=== PATIENT | male | born 1940 | race Caucasian/White ===

== ENCOUNTER → 2017-05-06 | Outpatient (CLI) | payer MEDICARE ==
[2017-05-06 11:25] LABS: Basophils % (A) 0 %; CH 34.9; CHCM 34.1; Eosinophils # (A) 0.3 k/uL (0-0.7); Eosinophils % (A) 7 %; HCT 42.9 % (39.0-53.0); HGB 14.5 gm/dL (13.0-17.5); Luc # (Auto) 0.11; Luc % (Auto) 3; Lymphocytes # (A) 1.2 k/uL (1.0-4.8); Lymphocytes % (A) 29 %; MCH 34.7 pg (25.0-35.0); MCHC 33.7 g/dL (31.0-37.0); MCV 102.9 fL (80.0-100.0); Macrocytosis Slight; Mean Platelet Volume 6.8; Monocytes # (A) 0.4 k/uL (0-1.0); Monocytes % (A) 10 %; Neutrophils # (A) 2.2 k/uL (1.3-7.7); Neutrophils % (A) 52 %; RBC 4.17 m/uL (4.30-5.90); RDW 13.1 % (11.5-15.5); WBC 4.1 k/uL (3.8-10.6); WBC (Perox) 4.18
[2017-05-06 12:03] LABS: ALT 39 U/L (21-72); Anion Gap 8 mmol/L; Blood Urea Nitrogen 18 mg/dL (9-20); Carbon Dioxide 25 mmol/L (22-30); Chloride 107 mmol/L (98-107); Cholesterol 121 mg/dL (<200); Glucose 92 mg/dL (74-99); HDL Cholesterol 61 mg/dL (40-60); Non-African American GFR(MDRD) >60 (>60 ml/min/1.73 sqM); Sodium 140 mmol/L (137-145); Triglycerides 69 mg/dL (<150)
== END | disposition home or self-care (01) ==
LOC: LABWHC1 10:12
PROVIDERS: ATTEND Internal Medicine Cardiovascular Disease
DX: I65.23 Occlusion and stenosis of bilateral carotid arteries (principal); E78.5 Hyperlipidemia, unspecified; I34.0 Nonrheumatic mitral (valve) insufficiency; I11.9 Hypertensive heart disease without heart failure; E55.9 Vitamin D deficiency, unspecified; I25.10 Atherosclerotic heart disease of native coronary artery without angina pectoris
CPT/HCPCS: 36415; 80051; 80061; 82306; 82565; 82947; 84443; 84460; 84520; 85025

== ENCOUNTER → 2017-06-01 | Outpatient (CLI) | payer MEDICARE ==
--- NOTE | 2017-06-01 15:47 | US ---
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 EXAM MEASUREMENTS: Abdominal Aorta: Proximal: 1.9 x 1.8 cm Mid: 1.6 x 1.7 cm Distal: 1.6 x 1.5 cm Bifurcation: rt 1.4 x 1.2 cm left 1.2 x 1.2 cm normal caliber aorta IMPRESSION: 1. Normal abdomen ultrasound
== END | disposition home or self-care (01) ==
LOC: RADUSWWP 10:52
PROVIDERS: ATTEND Internal Medicine Cardiovascular Disease
DX: I25.10 Atherosclerotic heart disease of native coronary artery without angina pectoris (principal)
CPT/HCPCS: 93979

== ENCOUNTER → 2018-01-25 | Outpatient (CLI) | payer MEDICARE ==
[2018-01-25 10:37] LABS: Basophils % (A) 1 %; Eosinophils # (A) 0.3 k/uL (0-0.7); Eosinophils % (A) 8 %; HCT 42.1 % (39.0-53.0); HGB 13.9 gm/dL (13.0-17.5); Lymphocytes # (A) 1.2 k/uL (1.0-4.8); Lymphocytes % (A) 30 %; MCH 32.9 pg (25.0-35.0); MCHC 32.9 g/dL (31.0-37.0); MCV 99.8 fL (80.0-100.0); Mean Platelet Volume 7.1; Monocytes # (A) 0.3 k/uL (0-1.0); Monocytes % (A) 9 %; Neutrophils % (A) 51 %; Platelet Count 161 k/uL (150-450); RBC 4.22 m/uL (4.30-5.90); RDW 12.3 % (11.5-15.5)
[2018-01-25 10:46] LABS: ALT 33 U/L (21-72); Anion Gap 8 mmol/L; Blood Urea Nitrogen 14 mg/dL (9-20); Carbon Dioxide 28 mmol/L (22-30); Chloride 106 mmol/L (98-107); Cholesterol 104 mg/dL (<200); Glucose 106 mg/dL (74-99); HDL Cholesterol 57 mg/dL (40-60); LDL Cholesterol,Calculated 40 mg/dL (0-99); Potassium 4.6 mmol/L (3.5-5.1); Sodium 142 mmol/L (137-145); Triglycerides 34 mg/dL (<150)
== END | disposition home or self-care (01) ==
LOC: LABWHC1 10:01
PROVIDERS: ATTEND Internal Medicine Cardiovascular Disease
DX: E78.5 Hyperlipidemia, unspecified (principal); I25.10 Atherosclerotic heart disease of native coronary artery without angina pectoris; I11.9 Hypertensive heart disease without heart failure; I34.0 Nonrheumatic mitral (valve) insufficiency; R06.02 Shortness of breath
CPT/HCPCS: 36415; 80051; 80061; 82565; 82947; 83880; 84443; 84460; 84520; 85025

== ENCOUNTER → 2018-06-14 | Outpatient (CLI) | payer MEDICARE ==
[2018-06-14 11:00] LABS: Basophils % (A) 1 %; Eosinophils # (A) 0.5 k/uL (0-0.7); Eosinophils % (A) 10 %; HCT 44.1 % (39.0-53.0); HGB 14.7 gm/dL (13.0-17.5); Lymphocytes # (A) 1.6 k/uL (1.0-4.8); Lymphocytes % (A) 32 %; MCH 33.4 pg (25.0-35.0); MCHC 33.5 g/dL (31.0-37.0); MCV 99.8 fL (80.0-100.0); Mean Platelet Volume 6.9; Monocytes # (A) 0.5 k/uL (0-1.0); Monocytes % (A) 10 %; Neutrophils # (A) 2.3 k/uL (1.3-7.7); Neutrophils % (A) 46 %; Platelet Count 138 k/uL (150-450); RBC 4.42 m/uL (4.30-5.90); RDW 12.7 % (11.5-15.5); WBC 4.9 k/uL (3.8-10.6)
[2018-06-14 11:04] LABS: Potassium 5.1 mmol/L (3.5-5.1)
[2018-06-14 17:27] LABS: Hemoglobin A1C 5.2 % (4.0-6.0)
== END | disposition home or self-care (01) ==
LOC: LABWHC1 09:26
PROVIDERS: ATTEND Internal Medicine Cardiovascular Disease
DX: E78.5 Hyperlipidemia, unspecified (principal); I11.9 Hypertensive heart disease without heart failure; R06.02 Shortness of breath
CPT/HCPCS: 36415; 80051; 80061; 82306; 82565; 82947; 83036; 83880; 84443; 84460; 84520; 85025

== ENCOUNTER → 2018-10-25 | Outpatient (CLI) | payer MEDICARE ==
[2018-10-25 11:53] LABS: Basophils % (A) 0 %; Eosinophils # (A) 0.3 k/uL (0-0.7); Eosinophils % (A) 8 %; HCT 40.7 % (39.0-53.0); HGB 14.3 gm/dL (13.0-17.5); Lymphocytes # (A) 1.1 k/uL (1.0-4.8); Lymphocytes % (A) 29 %; MCH 35.4 pg (25.0-35.0); Mean Platelet Volume 6.9; Monocytes # (A) 0.3 k/uL (0-1.0); Monocytes % (A) 8 %; Neutrophils % (A) 52 %; Platelet Count 149 k/uL (150-450); RBC 4.03 m/uL (4.30-5.90); RDW 12.6 % (11.5-15.5); WBC 3.9 k/uL (3.8-10.6)
[2018-10-25 15:59] LABS: Anion Gap 3.6 mmol/L (4.00-12.00); Carbon Dioxide 26.4 mmol/L (21.6-31.8); Potassium 4.9 mmol/L (3.5-5.5)
== END | disposition home or self-care (01) ==
LOC: LABWHC1 09:42
PROVIDERS: ATTEND Internal Medicine Cardiovascular Disease
DX: I11.9 Hypertensive heart disease without heart failure (principal); I25.10 Atherosclerotic heart disease of native coronary artery without angina pectoris; E78.5 Hyperlipidemia, unspecified; R06.02 Shortness of breath; R53.82 Chronic fatigue, unspecified
CPT/HCPCS: 36415; 80051; 80061; 82565; 82947; 83880; 84443; 84460; 84520; 85025

== ENCOUNTER → 2019-03-13 | Outpatient (CLI) | payer MEDICARE ==
[2019-03-13 10:44] LABS: Basophils % (A) 0 %; Eosinophils # (A) 0.4 k/uL (0-0.7); Eosinophils % (A) 6 %; HCT 43.6 % (39.0-53.0); HGB 14.6 gm/dL (13.0-17.5); Lymphocytes # (A) 1.3 k/uL (1.0-4.8); Lymphocytes % (A) 21 %; MCH 33.9 pg (25.0-35.0); MCHC 33.5 g/dL (31.0-37.0); MCV 101.2 fL (80.0-100.0); Monocytes # (A) 0.5 k/uL (0-1.0); Monocytes % (A) 9 %; Neutrophils # (A) 3.9 k/uL (1.3-7.7); Neutrophils % (A) 62 %; Platelet Count 162 k/uL (150-450); RBC 4.31 m/uL (4.30-5.90); RDW 12.8 % (11.5-15.5); WBC 6.3 k/uL (3.8-10.6)
[2019-03-13 16:41] LABS: LDL Cholesterol,Calculated 42.6 mg/dL (0.0-131.0); Potassium 4.5 mmol/L (3.5-5.5); VLDL Calculation 10.4 mg/dL (5.00-40.00)
== END ==
LOC: LABWHC1 09:39
PROVIDERS: ATTEND Internal Medicine Cardiovascular Disease
DX: E78.5 Hyperlipidemia, unspecified (principal); I11.9 Hypertensive heart disease without heart failure; I25.10 Atherosclerotic heart disease of native coronary artery without angina pectoris; R06.02 Shortness of breath
CPT/HCPCS: 36415; 80051; 80061; 82565; 82947; 83880; 84443; 84460; 84520; 85025

== ENCOUNTER → 2019-04-19 | Outpatient (CLI) | payer MEDICARE ==
--- NOTE | 2019-04-19 14:34 | XR ---
Lumbosacral spine HISTORY: Back pain 5 views of the lumbar sacral spine There is a rotatory dextroscoliosis seen. There is no evident spondylolysis. Anterior listhesis grade 1 L5-S1. There is loss of disc height at intervertebral levels. Sclerosis present in the posterior e lements of the lumbar spine. Vacuum phenomenon present at intervertebral disc levels. Lumbar vertebra l bodies show preserved height. Postop changes status post laminectomies present at L4 and possibly L 5. Vascular opacification is noted incidentally. Bone mineralization is reduced. IMPRESSION: Degenerative disc disease, scoliosis, osteopenia, facet arthropathy.
--- NOTE | 2019-04-19 14:44 | XR ---
Thoracic spine HISTORY: Back pain 3 views of the thoracic spine There is an underlying scoliosis. Patient is post median sternotomy. Multilevel spondylosis is presen t. Thoracic vertebral bodies show preserved height. Bone mineralization is reduced. Anterior flowing osteophytes within the lower thoracic spine with relative preservation of disc spaces may be indicati ve of diffuse idiopathic skeletal hyperostosis. IMPRESSION: Scoliosis, osteopenia, consider DISH
== END | disposition home or self-care (01) ==
LOC: RADXRMAIN 12:12
PROVIDERS: ATTEND Physician Assistant
DX: M51.37 Other intervertebral disc degeneration, lumbosacral region (principal); M41.87 Other forms of scoliosis, lumbosacral region; M85.88 Other specified disorders of bone density and structure, other site; M46.97 Unspecified inflammatory spondylopathy, lumbosacral region
CPT/HCPCS: 72070; 72110

== ENCOUNTER → 2019-06-29 | Outpatient (CLI) | payer MEDICARE ==
[2019-06-29 09:42] LABS: Basophils % (A) 0 %; Eosinophils # (A) 0.4 k/uL (0-0.7); Eosinophils % (A) 6 %; HCT 46.5 % (39.0-53.0); HGB 15.7 gm/dL (13.0-17.5); Lymphocytes # (A) 1.7 k/uL (1.0-4.8); Lymphocytes % (A) 28 %; MCH 34.2 pg (25.0-35.0); MCHC 33.8 g/dL (31.0-37.0); Mean Platelet Volume 6.5; Monocytes # (A) 0.4 k/uL (0-1.0); Monocytes % (A) 7 %; Neutrophils # (A) 3.4 k/uL (1.3-7.7); Neutrophils % (A) 56 %; Platelet Count 167 k/uL (150-450); RDW 12.6 % (11.5-15.5); WBC 6.1 k/uL (3.8-10.6)
[2019-06-29 18:38] LABS: African American GFR (CKD) 74.7 (60.0-200.0); Anion Gap 7.8 mmol/L (4.00-12.00); Carbon Dioxide 25.2 mmol/L (21.6-31.8); Potassium 4.7 mmol/L (3.5-5.5)
== END | disposition home or self-care (01) ==
LOC: LABWHC1 09:18
PROVIDERS: ATTEND Internal Medicine Cardiovascular Disease
DX: E78.5 Hyperlipidemia, unspecified (principal); I11.9 Hypertensive heart disease without heart failure; I25.10 Atherosclerotic heart disease of native coronary artery without angina pectoris; R06.02 Shortness of breath
CPT/HCPCS: 36415; 80051; 80061; 82565; 82947; 83880; 84443; 84460; 84520; 85025

== ENCOUNTER → 2020-01-22 | Outpatient (CLI) | payer MEDICARE ==
[2020-01-22 17:50] LABS: T4, Free (Free Thyroxine) 1.3 ng/dL (0.80-1.80)
== END | disposition home or self-care (01) ==
LOC: LABWHC1 11:14
PROVIDERS: ATTEND Psychiatry & Neurology Neurology
DX: E55.9 Vitamin D deficiency, unspecified (principal); R41.3 Other amnesia; M62.81 Muscle weakness (generalized); E87.8 Other disorders of electrolyte and fluid balance, not elsewhere classified
CPT/HCPCS: 36415; 82306; 82550; 82607; 84207; 84439; 84443; 86780

== ENCOUNTER 2020-05-07 16:34 | Observation (INO) | payer MEDICARE ==
[2020-05-07] MEDS ORDERED: NITROGLYCERIN SL TABS 0.4 MG TAB SUBLINGUAL PRN (16:49)
--- NOTE | 2020-05-07 16:49 | ED ---
General Adult HPI - General Stated complaint: Chest Pain Time Seen by Provider: 05/07/20 16:40 Source: patient, RN notes reviewed, old records reviewed - History of Present Illness Initial comments: This is a 80-year-old male who presents emergency Department with a past medical history significant for bypass surgery. Patient presented to [facility] earlier today with chest pain that lasted about 15-20 minutes. Patient states the pain eventually subsided. While the patient was in the emergency department he started having more pain again again last month 15-20 minutes and then it eventually subsided. Currently the patient is chest pain-free. Patient describes pain as pressure. Patient denies any radiation of the pain. Patient states she's mild short of breath. Patient denies any diaphoretic episodes. P atient denies nausea vomiting diarrhea. Patient states the pain reminded him of his cardiac pain in the past and that is what concerned him. Patient denies any abdominal pain patient is nausea vomiting diarrhea per patient denies any swelling to legs or calf tenderness. - Related Data Allergies Allergy/AdvReac Type Severity Reaction Status Date / Time acetaminophen [From Vicodin] Allergy Rash/Hives Verified 05/07/20 17:21 bacitracin Allergy Rash/Hives Verified 05/07/20 17:21 hydrocodone [From Vicodin] Allergy Rash/Hives Verified 05/07/20 17:21 sulfadimethoxine Allergy Rash/Hives Verified 05/07/20 17:21 trimethoprim Allergy Rash/Hives Verified 05/07/20 17:21 Review of Systems ROS Statement: Those systems with pertinent positive or pertinent negative responses have been documented in the HPI. ROS Other: All systems not noted in ROS Statement are negative. General Exam - General Exam Comments Initial Comments: GENERAL: Patient is well-developed and well-nourished. Patient is nontoxic and well- hydrated and is in no acute distress. ENT: Neck is soft and supple. No significant lymphadenopathy is noted. Oropharynx is clear. Moist mucous membranes. Neck has full range of motion without eliciting any pain. EYES: The sclera were anicteric and conjunctiva were pink and moist. Extraocular movements were intact and pupils were equal round and reactive to light. Eyelids were unremarkable. PULMONARY: Unlabored respirations. Good breath sounds bilaterally. No audible rales rhonchi or wheezing was noted. CARDIOVASCULAR: There is a regular rate and rhythm without any murmurs gallops or rubs. ABDOMEN: Soft and nontender with normal bowel sounds. SKIN: Skin is clear with no lesions or rashes and otherwise unremarkable. NEUROLOGIC: Patient is alert and oriented x3. Cranial nerves II through XII are grossly intact. Motor and sensory are also intact. Normal speech, volume and content. Symmetrical smile. MUSCULOSKELETAL: Normal extremities with adequate strength and full range of motion. No lower extremity swelling or edema. No calf tenderness. LYMPHATICS: No significant lymphadenopathy is noted PSYCHIATRIC: Normal psychiatric evaluation. Medical Decision Making - Medical Decision Making I will continue the heparin in the emergency department. I spoke with Dr. Lacey he agreed to admit the patient admitted the patient I consult to cardiology. EKG shows sinus bradycardia 50 bpm IA interval 146 dresses 84 Q-T intervals 460 QTC is 419. Patient's EKG shows no ST segment elevation or depression. Gets like it's like Disposition Clinical Impression: Unstable angina Disposition: ADMITTED IP TO THIS HOSP Referrals: Bill Smith MD [Primary Care Provider] - 1-2 days Time of Disposition: 16:49
[2020-05-07] MEDS ORDERED: BACLOFEN 10 MG TAB PO PRN (20:28)
[2020-05-07] MEDS ORDERED: MELATONIN 3 MG TABLET PO PRN (20:29)
[2020-05-07] MEDS ORDERED: ALPRAZolam 0.25 MG TAB PO PRN (20:29)
[2020-05-07] MEDS ORDERED: LACTULOSE 20 GM/30 ML CUP PO PRN (20:29)
[2020-05-07] MEDS ORDERED: MAGNESIUM HYDROXIDE 2,400 MG/10 ML CUP PO PRN (20:29)
[2020-05-07] MEDS ORDERED: ACETAMINOPHEN TAB 325 MG TAB PO PRN (20:29)
[2020-05-07] MEDS ORDERED: CALCIUM CARBONATE 500 MG CHEWABLE PO PRN (20:29)
[2020-05-07] MEDS ORDERED: ONDANSETRON 4 MG/2 ML VIAL IVP PRN (20:29)
[2020-05-07] MEDS ORDERED: MAG HYDROX/AL HYDROX/SIMETH 30 ML CUP PO PRN (20:29)
[2020-05-07] MEDS ORDERED: NALOXONE 0.4 MG/ML 1 ML VIAL IV PRN (20:29)
[2020-05-07] MEDS: NITROGLYCERIN OINT 1 INCH/GM PACKET TOPICAL SCH ×2 (21:10→22:23)
[2020-05-07] MEDS: CARVEDILOL 6.25 MG TAB PO SCH (21:12)
--- NOTE | 2020-05-07 21:26 | P.HPIM ---
History of Present Illness H&P Date: 05/07/20 Chief Complaint: Chest pressure History of presenting complaint: This is a very pleasant [address] Smith. Chronic stable medical conditions include hyperlipidemia, GERD, mild Alzheimer's dementia, cardiomyopathy, hypertension, chronic low back pain, chronic kidney disease, coronary artery disease with history of bypass years ago. Patient not the most detailed historians. Patient initially presented at [facility] where at home and had chest pressure for 30-45 minutes. Laying across the chest. No radiation. and reported some dizziness. He also had an episode previously with dinnertime. Troponin was negative patient was sent down here for further workup. Patient currently chest pain-free. 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 . Does smoke in the past. No significant alcohol history Family history: Reviewed, noncontributory to presentation Physical examination: VITAL SIGNS: 98.2, 50, 18, 100/53, 98% on 2 L GENERAL: BMI 23.8, sitting up, comfortable. EYES: Pupils equal. Conjunctiva normal. HEENT: External appearance of nose and ears normal, oral cavity grossly normal. NECK: JVD not raised; masses not palpable. HEART: First and second heart sounds are normal; no edema. LUNGS: Respiratory rate normal; clear to auscultation. ABDOMEN: Soft, nontender, liver spleen not palpable, no masses palpable. PSYCH: [Patient is able to answer most to simple questions l. NEUROLOGICAL: Cranial nerves grossly intact; no facial asymmetry, power and sensation grossly intact. LYMPHATICS: No lymph nodes palpable in the axilla and neck INVESTIGATIONS, reviewed in the clinical context: Blood work from [facility]: Sodium 136 potassium 4.4 bun 21 creatinine 1 CPK 94 white count 5.6 hemoglobin 13.4 platelets 142 troponin less than 0.012 EKG tracing personally reviewed by me showed sinus rhythm with a heart rate of 50 Assessment: -Possible unstable angina in a patient known coronary artery disease with negative troponin -Coronary artery disease prior history of coronary bypass -Hyperlipidemia -GERD -Cognitive impairment probably tonsils Alzheimer's dementia -Essential hypertension and chronic low back pain from arthritis - Plan: Home medications resumed. Patient is on aspirin cardiology was consulted. Patient will at least need a stress test. We'll make him nothing by mouth after midnight patient currently chest pain-free. Discussed with the patient Past Medical History Past Medical History: Coronary Artery Disease (CAD), Dementia, GERD/Reflux, Hyperlipidemia, Hypertension Additional Past Medical History / Comment(s): chronic back pain,CKD,Thoracic aortic aneurysm,hydrocele,cardiomyopathy, History of Any Multi-Drug Resistant Organisms: None Reported Past Surgical History: Cholecystectomy, Coronary Bypass/CABG, Orthopedic Surgery Past Anesthesia/Blood Transfusion Reactions: No Reported Reaction Past Psychological History: No Psychological Hx Reported Additional Psychological History / Comment(s): dementia Smoking Status: Former smoker Past Alcohol Use History: None Reported Past Drug Use History: None Reported Medications and Allergies Home Medications Medication Instructions Recorded Confirmed Type Ascorbic Acid [Vitamin C] 500 mg PO DAILY 05/07/20 05/07/20 History Aspirin EC [Ecotrin Low Dose] 81 mg PO DAILY 05/07/20 05/07/20 History Baclofen [Lioresal] 10 mg PO BID PRN 05/07/20 05/07/20 History Carvedilol [Coreg] 6.25 mg PO BID 05/07/20 05/07/20 History Donepezil [Aricept] 10 mg PO DAILY 05/07/20 05/07/20 History Ergocalciferol [Vitamin D2 50,000 unit PO WE 05/07/20 05/07/20 History (DRISDOL)] Folic Acid 1,333mcg 1,333 mcg PO DAILY 05/07/20 05/07/20 History Magnesium 250 mg PO DAILY 05/07/20 05/07/20 History Memantine HCl [Memantine HCl ER] 28 mg PO DAILY 05/07/20 05/07/20 History Multivitamins, Thera [Multivitamin 1 tab PO DAILY 05/07/20 05/07/20 History (formulary)] Quinapril HCl [Accupril] 5 mg PO DAILY 05/07/20 05/07/20 History Allergies Allergy/AdvReac Type Severity Reaction Status Date / Time acetaminophen [From Vicodin] Allergy Rash/Hives Verified 05/07/20 17:21 bacitracin Allergy Rash/Hives Verified 05/07/20 17:21 hydrocodone [From Vicodin] Allergy Rash/Hives Verified 05/07/20 17:21 sulfadimethoxine Allergy Rash/Hives Verified 05/07/20 17:21 trimethoprim Allergy Rash/Hives Verified 05/07/20 17:21 Physical Exam Vitals: Vital Signs Temp Pulse Pulse Resp BP BP Pulse Ox 05/07/20 20:15 98.3 F 55 L 15 134/58 99 05/07/20 19:40 98.2 F 50 L 18 100/53 98 05/07/20 18:02 51 L 20 134/65 99 05/07/20 17:44 49 L 16 129/66 99 05/07/20 16:54 98.1 F 51 L 18 129/64 99 Intake and Output 05/07/20 05/07/20 05/07/20 06:59 14:59 22:59 Other: Weight 77.564 kg Thrombosis Risk Factor Assmnt - Choose All That Apply Other Risk Factors: No Other congenital or acquired thrombophilia - If yes, enter type in comment: No
[2020-05-08] MEDS: NITROGLYCERIN OINT 1 INCH/GM PACKET TOPICAL SCH ×2 (05:48→08:29)
[2020-05-08 05:51] LABS: Cholesterol 127 mg/dL (<200); HDL Cholesterol 54 mg/dL (40-60); LDL Cholesterol,Calculated 62 mg/dL (0-99); Triglycerides 55 mg/dL (<150)
[2020-05-08] MEDS: CARVEDILOL 6.25 MG TAB PO SCH (08:28)
[2020-05-08] MEDS ORDERED: LISINOPRIL 5 MG TAB PO SCH (09:00)
[2020-05-08] MEDS ORDERED: MAGNESIUM OXIDE 400 MG TAB PO SCH (09:00)
[2020-05-08] MEDS ORDERED: ASCORBIC ACID 500 MG TAB PO SCH (09:00)
[2020-05-08] MEDS ORDERED: ASPIRIN 81 MG PO SCH (09:00)
[2020-05-08] MEDS ORDERED: MULTIVITAMINS, THERA 1 EACH TAB PO SCH (09:00)
[2020-05-08] MEDS ORDERED: MEMANTINE 10 MG TAB PO SCH (09:00)
[2020-05-08] MEDS ORDERED: DONEPEZIL 10 MG TAB PO SCH (09:00)
[2020-05-08] MEDS ORDERED: ASPIRIN 325 MG TAB PO SCH (09:00)
--- NOTE | 2020-05-08 09:06 | P.CRDCN ---
History of Present Illness History of present illness: HISTORY OF PRESENTING ILLNESS This is a pleasant 80-year-old male past medical history significant for very artery disease status post bypass grafting, hypertension, dyslipidemia, thoracic aortic aneurysm, cardiomyopathy and dementia. This information is all obtained from the medical record as the patient is a poor historian. He states he follows with Dr. Conde for cardiology. We have been asked to see in consultation for chest pain. According to the ER noted he was transferred from [facility] secondary to chest pain. The patient states he does recall feeling like he was going to pass out yesterday and like someone was squeezing his torso. He cannot recall how long this lasted, however the ER note states 15- 20 minutes and it subsided on its own. He then did have abother episode while in the ER that again lasted around 15 minutes. He denies feeling short of breath, palpitations or nausea. But does recall feeling slightly diaphoretic. DIAGNOSTICS EKG reveals sinus bradycardia heart rate 50. Telemetry tracings indicate sinus bradycardia, heart rate mostly in the low 50's. No significant pauses or arrhythmia noted. Laboratory reviewed, cardiac enzymes performed here negative 2, initial troponin and [facility] negative 1, laboratory data from [facility] reveals sodium was 136, potassium 4.4, creatinine 1.0, WBC 5.6, hemoglobin 13.4 and platelets 142. Current cardiac medications include carvedilol 6.25 mg twice a day, Accupril 5 mg daily and aspirin 81 mg daily. REVIEW OF SYSTEMS At the time of my exam: CONSTITUTIONAL: Denies fever or chills. CARDIOVASCULAR: Denies chest pain, shortness of breath, orthopnea, PND or palpitations. RESPIRATORY: Denies cough. GASTROINTESTINAL: Denies abdominal pain, diarrhea, constipation, nausea or vomiting. MUSCULOSKELETAL: Denies myalgias. NEUROLOGIC: Denies numbness, tingling or weakness. ENDOCRINE: Denies fatigue, weight change, polydipsia or polyurina. GENITOURINARY: Denies burning, hematuria or urgency with micturation. HEMATOLOGIC: Denies history of anemia or bleeding. PHYSICAL EXAMINATION Blood pressure 137/70 heart rate 50 afebrile and maintaining oxygen saturation on room air. CONSTITUTIONAL: No apparent distress. HEENT: Head is normocephalic. Pupils are equal, round. Sclerae anicteric. Mucous membranes of the mouth are moist. No JVD. No carotid bruit. CHEST EXAMINATION: Lungs are clear to auscultation. No chest wall tenderness is noted on palpation or with deep breathing. HEART EXAMINATION: Regular rate and rhythm. S1, S2 heard. Soft systolic ejection murmur at the left sternal border, no gallops or rub. ABDOMEN: Soft, nontender. Positive bowel sounds. EXTREMITIES: 2+ peripheral pulses, no lower extremity edema and no calf tenderness. NEUROLOGIC EXAMINATION: Patient is awake, alert and oriented x3. ASSESSMENT Chest pain, an acute coronary event has been ruled out. Coronary artery disease s/p bypass grafting, exact details unavailable to me at this time Hypertension Dementia PLAN An acute coronary event has been ruled out with normal cardiac enzymes and no signs of ischemia on EKG. Recommend maximizing his medical therapy. Decrease coreg to 3.125 mg BID secondary to bradycardia. Increase lisinopril to 10 mg daily for blood pressure since we are decreasing the coreg. Discontinue nitropaste and initiate imdur 30 mg daily. Obtain 2D echocardiogram and doppler study to assess cardiac structure and function. If he remains chest pain free on current regimen he can be discharged home to follow up with his primary household assistant. Thank you kindly for this consultation. Nurse Practitioner note has been reviewed, I agree with a documented findings and plan of care. Patient was seen and examined. Past Medical History Past Medical History: Coronary Artery Disease (CAD), Dementia, GERD/Reflux, Hyperlipidemia, Hypertension Additional Past Medical History / Comment(s): chronic back pain,CKD,Thoracic aortic aneurysm,hydrocele,cardiomyopathy, History of Any Multi-Drug Resistant Organisms: None Reported Past Surgical History: Cholecystectomy, Coronary Bypass/CABG, Orthopedic Surgery Past Anesthesia/Blood Transfusion Reactions: No Reported Reaction Past Psychological History: No Psychological Hx Reported Additional Psychological History / Comment(s): dementia Smoking Status: Former smoker Past Alcohol Use History: None Reported Past Drug Use History: None Reported Medications and Allergies Home Medications Medication Instructions Recorded Confirmed Type Ascorbic Acid [Vitamin C] 500 mg PO DAILY 05/07/20 05/07/20 History Aspirin EC [Ecotrin Low Dose] 81 mg PO DAILY 05/07/20 05/07/20 History Baclofen [Lioresal] 10 mg PO BID PRN 05/07/20 05/07/20 History Carvedilol [Coreg] 6.25 mg PO BID 05/07/20 05/07/20 History Donepezil [Aricept] 10 mg PO DAILY 05/07/20 05/07/20 History Ergocalciferol [Vitamin D2 50,000 unit PO WE 05/07/20 05/07/20 History (DRISDOL)] Folic Acid 1,333mcg 1,333 mcg PO DAILY 05/07/20 05/07/20 History Magnesium 250 mg PO DAILY 05/07/20 05/07/20 History Memantine HCl [Memantine HCl ER] 28 mg PO DAILY 05/07/20 05/07/20 History Multivitamins, Thera [Multivitamin 1 tab PO DAILY 05/07/20 05/07/20 History (formulary)] Quinapril HCl [Accupril] 5 mg PO DAILY 05/07/20 05/07/20 History Allergies Allergy/AdvReac Type Severity Reaction Status Date / Time acetaminophen [From Vicodin] Allergy Rash/Hives Verified 05/07/20 17:21 bacitracin Allergy Rash/Hives Verified 05/07/20 17:21 hydrocodone [From Vicodin] Allergy Rash/Hives Verified 05/07/20 17:21 sulfadimethoxine Allergy Rash/Hives Verified 05/07/20 17:21 trimethoprim Allergy Rash/Hives Verified 05/07/20 17:21 Physical Exam Vitals: Vital Signs Temp Pulse Pulse Resp BP BP Pulse Ox 05/08/20 04:00 98.3 F 50 L 15 137/70 96 05/08/20 03:40 50 L 14 05/07/20 22:35 97.7 F 50 L 14 119/56 96 05/07/20 22:34 55 L 15 05/07/20 20:15 98.3 F 55 L 15 134/58 99 05/07/20 19:40 98.2 F 50 L 18 100/53 98 05/07/20 18:02 51 L 20 134/65 99 05/07/20 17:44 49 L 16 129/66 99 05/07/20 16:54 98.1 F 51 L 18 129/64 99 Intake and Output 05/07/20 05/08/20 05/08/20 22:59 06:59 14:59 Intake Total 720 Balance 720 Intake: Oral 720 Other: # Voids 2 1 Weight 77.564 kg Results Cardiac Enzymes 05/07/20 05/08/20 Range/Units 19:32 01:39 Troponin I <0.012 <0.012 (0.000-0.034) ng/mL Lipids 05/08/20 Range/Units 01:39 Triglycerides 55 (<150) mg/dL Cholesterol 127 (<200) mg/dL HDL Cholesterol 54 (40-60) mg/dL Current Medications Generic Name Dose Route Start Last Admin Trade Name Freq PRN Reason Stop Dose Admin Acetaminophen 650 mg 05/07/20 20:29 Tylenol Tab PO Q6HR PRN Mild Pain or Fever > 100.5 Al Hydroxide/Mg Hydroxide 15 ml 05/07/20 20:29 Maalox PO Q6HR PRN Indigestion Alprazolam 0.25 mg 05/07/20 20:29 Xanax PO Q6HR PRN Anxiety Ascorbic Acid 500 mg 05/08/20 09:00 05/08/20 08:28 Vitamin C PO 500 mg DAILY DIRK Administration Aspirin 81 mg 05/08/20 09:00 05/08/20 08:27 Aspirin PO 81 mg DAILY [facility] Administration Baclofen 10 mg 05/07/20 20:28 Lioresal PO BID PRN Muscle Spasm Calcium Carbonate/Glycine 1,000 mg 05/07/20 20:29 Tums PO Q4HR PRN Dyspepsia Carvedilol 6.25 mg 05/07/20 21:00 05/08/20 08:28 Coreg PO 6.25 mg AC-BID DIRK Administration Donepezil HCl 10 mg 05/08/20 09:00 05/08/20 08:28 Aricept PO 10 mg DAILY [facility] Administration Lactulose 20 gm 05/07/20 20:29 Cephulac PO DAILY PRN Constipation Lisinopril 5 mg 05/08/20 09:00 05/08/20 08:28 Zestril PO 5 mg DAILY [facility] Administration Magnesium Hydroxide 2,400 mg 05/07/20 20:29 Milk Of Magnesia PO DAILY PRN Constipation Magnesium Oxide 400 mg 05/08/20 09:00 05/08/20 08:28 Mag-Ox PO Not Given DAILY [facility] Melatonin 3 mg 05/07/20 20:29 Melatonin PO HS PRN Insomnia Memantine 10 mg 05/08/20 09:00 05/08/20 08:28 Namenda PO 10 mg BID [facility]IRK Administration Multivitamins 1 each 05/08/20 09:00 05/08/20 08:28 Theragran PO 1 each DAILY [facility] Administration Naloxone HCl 0.2 mg 05/07/20 20:29 Narcan IV Q2M PRN Opioid Reversal Nitroglycerin 1 inch 05/07/20 18:00 05/08/20 08:29 Nitro-Bid Oint TOPICAL Not Given Q6HR [facility] Nitroglycerin 0.4 mg 05/07/20 16:49 Nitrostat SUBLINGUAL Q5M PRN Chest Pain Ondansetron HCl 4 mg 05/07/20 20:29 Zofran IVP Q8HR PRN Nausea And Vomiting Intake and Output 05/07/20 05/08/20 05/08/20 22:59 06:59 14:59 Intake Total 720 Balance 720 Intake: Oral 720 Other: # Voids 2 1 Weight 77.564 kg
[2020-05-08] MEDS ORDERED: ISOSORBIDE MONONITRATE ER 30 MG TAB.ER.24H PO SCH (09:15)
[2020-05-08 10:04] VITALS: BP 124/59; PULSE 53; RESP 18; TEMP 97.8
--- NOTE | 2020-05-08 11:45 | ECHOF ---
Referral Reason:cp, near syncope MEASUREMENTS -------- HEIGHT: 180.3 cm WEIGHT: 77.6 kg BP: IVSd: 1.2 cm (0.6 - 1.1) LVIDd: 4.0 cm (3.9 - 5.3) LVPWd: 1.2 cm (0.6 - 1.1) IVSs: 1.7 cm LVIDs: 1.8 cm LVPWs: 1.6 cm LAESV Index (A-L): 23.84 ml/m Ao Diam: 3.0 cm (2.0 - 3.7) AV Cusp: 2.2 cm (1.5 - 2.6) LA Diam: 3.9 cm (2.7 - 3.8) MV EXCURSION: 15.271 mm (> 18.000) MV EF SLOPE: 80 mm/s (70 - 150) EPSS: 1.9 cm MV E Danny: 0.82 m/s MV DecT: 237 ms MV A Danny: 0.55 m/s MV E/A Ratio: 1.49 AR PHT: 381 ms RAP: 5.00 mmHg RVSP: 15.95 mmHg FINDINGS -------- Sinus rhythm. This was a technically adequate study. The left ventricular size is normal. There is mild concentric left ventricular hypertrophy. Overa ll left ventricular systolic function is normal with, an EF between 55 - 60 %. The diastolic fillin g pattern is normal for the age of the patient 9.91. The right ventricle is normal in size. The left atrial size is normal. Normal LA size by volume 22+/-6 ml/m2. The right atrial size is normal. The aortic valve is trileaflet and appears structurally normal. Trace amount of aortic regurgitatio n. The mitral valve is normal. The mitral valve leaflets are mildly thickened. Mild mitral regurgita tion is present. The tricuspid valve appears structurally normal. Trace tricuspid regurgitation present. Right jayashree tricular systolic pressure is normal at < 35 mmHg. There is no pulmonic regurgitation present. The aortic root size is normal. Normal inferior vena cava with normal inspiratory collapse consistent with estimated right atrial pre ssure of 5 mmHg. There is no pericardial effusion. CONCLUSIONS -------- 1. Sinus rhythm. 2. This was a technically adequate study. 3. The left ventricular size is normal. 4. There is mild concentric left ventricular hypertrophy. 5. Overall left ventricular systolic function is normal with, an EF between 55 - 60 %. 6. The diastolic filling pattern is normal for the age of the patient 9.91 7. The right ventricle is normal in size. 8. The left atrial size is normal. 9. Normal LA size by volume 22+/-6 ml/m2. 10. The right atrial size is normal. 11. The aortic valve is trileaflet and appears structurally normal. 12. Trace amount of aortic regurgitation. 13. The mitral valve is normal. 14. The mitral valve leaflets are mildly thickened. 15. Mild mitral regurgitation is present. 16. The tricuspid valve appears structurally normal. 17. Trace tricuspid regurgitation present. 18. Right ventricular systolic pressure is normal at < 35 mmHg. 19. There is no pulmonic regurgitation present. 20. The aortic root size is normal. 21. Normal inferior vena cava with normal inspiratory collapse consistent with estimated right atrial pressure of 5 mmHg. 22. There is no pericardial effusion. ENTRY LEVEL SOFTWARE ENGINEER: Mis Lopez RDCS
--- NOTE | 2020-05-08 21:38 | P.DS ---
Providers Date of admission: 05/07/20 17:20 Expected date of discharge: 05/08/20 Attending physician: David Lacey Consults: 05/07/20 16:50 Consult Physician Urgent Consulting Provider: [facility] Consult Reason/Comments: Unstable angina Do you want consulting provider notified?: Yes Primary care physician: Bill Smith [facility] Course: Chief Complaint: Chest pressure History of presenting complaint: This is a very pleasant [address] Smith. Chronic stable medical conditions include hyperlipidemia, GERD, mild Alzheimer's dementia, cardiomyopathy, hypertension, chronic low back pain, chronic kidney disease, coronary artery disease with history of bypass years ago. Patient not the most detailed historians. Patient initially presented at [facility] where at home and had chest pressure for 30-45 minutes. Laying across the chest. No radiation. and reported some dizziness. He also had an episode previously with dinnertime. Troponin was negative patient was sent down here for further workup. Patient currently chest pain-free. Today doing well. Seen by cardiac surgery. Imdur 30 mg was added. Coreg was cut back to 3.125 twice a day and quinapril increased to 10 mg daily. I called the patient's at home this evening. Informed her of that dosage changes. She wrote it down. Patient otherwise is doing well. No chest pain. No shortness of breath. Consultation: Chito De Santiago from cardiology Physical examination: VITAL SIGNS: 97.8, 53, 18, 124/59, 98% room air GENERAL: Sitting at the edge of the bed, comfortable EYES: Pupils equal. Conjunctiva normal. HEENT: External appearance of nose and ears normal, oral cavity grossly normal. NECK: JVD not raised; masses not palpable. HEART: First and second heart sounds are normal; no edema. LUNGS: Respiratory rate normal; clear to auscultation. ABDOMEN: Soft, nontender, liver spleen not palpable, no masses palpable. PSYCH: [Patient is able to answer most to simple questions l. INVESTIGATIONS, reviewed in the clinical context: LDL 62 COVID 19 PCR-not detected Blood work from [facility]: Sodium 136 potassium 4.4 bun 21 creatinine 1 CPK 94 white count 5.6 hemoglobin 13.4 platelets 142 troponin less than 0.012 EKG tracing personally reviewed by me showed sinus rhythm with a heart rate of 50 Assessment: -Possible unstable angina in a patient known coronary artery disease with negative troponin. Medications adjusted. -Coronary artery disease prior history of coronary bypass -Hyperlipidemia -GERD -Cognitive impairment probably tonsils Alzheimer's dementia -Essential hypertension and chronic low back pain from arthritis - Disposition: Home Patient Condition at Discharge: Stable Plan - Discharge Summary New Discharge Prescriptions: New Isosorbide Mononitrate ER [Imdur] 30 mg PO DAILY #30 tab.er.24h Nitroglycerin Sl Tabs [Nitrostat] 0.4 mg SUBLINGUAL Q5M PRN #25 tab PRN Reason: Chest Pain Continue Baclofen [Lioresal] 10 mg PO BID PRN PRN Reason: Muscle Spasm Folic Acid 1,333mcg 1,333 mcg PO DAILY Aspirin EC [Ecotrin Low Dose] 81 mg PO DAILY Multivitamins, Thera [Multivitamin (formulary)] 1 tab PO DAILY Magnesium 250 mg PO DAILY Ergocalciferol [Vitamin D2 (DRISDOL)] 50,000 unit PO WE Ascorbic Acid [Vitamin C] 500 mg PO DAILY Quinapril HCl [Accupril] 5 mg PO DAILY Memantine HCl [Memantine HCl ER] 28 mg PO DAILY Donepezil [Aricept] 10 mg PO DAILY Carvedilol [Coreg] 6.25 mg PO BID Discharge Medication List Ascorbic Acid [Vitamin C] 500 mg PO DAILY 05/07/20 [History] Aspirin EC [Ecotrin Low Dose] 81 mg PO DAILY 05/07/20 [History] Baclofen [Lioresal] 10 mg PO BID PRN 05/07/20 [History] Carvedilol [Coreg] 6.25 mg PO BID 05/07/20 [History] Donepezil [Aricept] 10 mg PO DAILY 05/07/20 [History] Ergocalciferol [Vitamin D2 (DRISDOL)] 50,000 unit PO WE 05/07/20 [History] Folic Acid 1,333mcg 1,333 mcg PO DAILY 05/07/20 [History] Magnesium 250 mg PO DAILY 05/07/20 [History] Memantine HCl [Memantine HCl ER] 28 mg PO DAILY 05/07/20 [History] Multivitamins, Thera [Multivitamin (formulary)] 1 tab PO DAILY 05/07/20 [History] Quinapril HCl [Accupril] 5 mg PO DAILY 05/07/20 [History] Isosorbide Mononitrate ER [Imdur] 30 mg PO DAILY #30 tab.er.24h 05/08/20 [Rx] Nitroglycerin Sl Tabs [Nitrostat] 0.4 mg SUBLINGUAL Q5M PRN #25 tab 05/08/20 [Rx] Follow up Appointment(s)/Referral(s): cardiology, [Other] - 1 Week Bill Smith MD [Primary Care Provider] - 1-2 days Patient Instructions/Handouts: Chest Pain (DC) Activity/Diet/Wound Care/Special Instructions: patient is to follow up with primary supervisor tunnel heading, Dr. Conde at [facility]. Discharge Disposition: HOME SELF-CARE
[2020-05-09] MEDS ORDERED: LISINOPRIL 10 MG TAB PO SCH (09:00)
== END 2020-05-08 12:39 | disposition home or self-care (01) ==
LOC: EC 16:34 → 1SOBS 17:20
PROVIDERS: ADMIT Hospitalist; ATTEND Hospitalist
DX: R07.89 Other chest pain (principal); R42 Dizziness and giddiness; R06.02 Shortness of breath; R00.1 Bradycardia, unspecified; R61 Generalized hyperhidrosis; E78.5 Hyperlipidemia, unspecified; K21.9 Gastro-esophageal reflux disease without esophagitis; G30.9 Alzheimer's disease, unspecified; F02.80 Dementia in other diseases classified elsewhere, unspecified severity, without behavioral disturbance, psychotic disturbance, mood disturbance, and anxiety; I42.9 Cardiomyopathy, unspecified; I12.9 Hypertensive chronic kidney disease with stage 1 through stage 4 chronic kidney disease, or unspecified chronic kidney disease; N18.9 Chronic kidney disease, unspecified; I25.10 Atherosclerotic heart disease of native coronary artery without angina pectoris; I71.2 Thoracic aortic aneurysm, without rupture; M46.96 Unspecified inflammatory spondylopathy, lumbar region; Z95.1 Presence of aortocoronary bypass graft; Z87.891 Personal history of nicotine dependence; Z90.49 Acquired absence of other specified parts of digestive tract; Z88.5 Allergy status to narcotic agent; Z88.2 Allergy status to sulfonamides; Z88.1 Allergy status to other antibiotic agents; Z79.82 Long term (current) use of aspirin; Z79.899 Other long term (current) drug therapy; Z20.828 Contact with and (suspected) exposure to other viral communicable diseases
CPT/HCPCS: 93005 ×2; 99285; 93306; 80061; 84484 ×2; G0378 ×2; U0003

== ENCOUNTER → 2020-09-15 | Outpatient (CLI) | payer MEDICARE ==
--- NOTE | 2020-09-15 09:55 | XR ---
Right hip HISTORY: Right hip pain, M 25.551 2 views of the right hip Suspect there is chondrocalcinosis present. Alignment, joint spaces, bone mineralization are normal. No fracture or dislocation. Calcification present near the greater trochanter. There are vascular kenn cifications within the pelvis. IMPRESSION: Suspect chondrocalcinosis, possible calcific tendinitis.
== END | disposition home or self-care (01) ==
LOC: RADXRMAIN 09:12
PROVIDERS: ATTEND Pediatrics
DX: M25.551 Pain in right hip (principal)
CPT/HCPCS: 73502

== ENCOUNTER → 2021-02-06 | Outpatient (CLI) | payer MEDICARE ==
--- NOTE | 2021-02-06 12:52 | MR ---
EXAMINATION TYPE: MR brain wo con DATE OF EXAM: 02/06/2021 COMPARISON: 03/25/2010 HISTORY: 81-year-old male I67.9, CVA, memory loss, difficulty walking TECHNIQUE: Multiplanar, multisequence images of the brain and brainstem were acquired before without IV contrast. Diffusion weighted imaging is performed. FINDINGS: No evidence for acute infarction, hemorrhage, mass, mass effect, midline shift, herniation, effacemen t of basal cisterns, or extra-axial fluid collection. There is progression in supratentorial volume loss as compared to 2009 now with [id number] vent riculomegaly, Anastacio's ratio calculated at 0.38. Hypoplastic V4 segment left vertebral artery and persistent origin left posterior cerebral dory ry. Otherwise, major intracranial flow voids are intact. T2/FLAIR weighted sequences show moderate confluent periventricular white white matter change and mil d to moderate scattered air change in the deep white matter regions and also in the bilateral paramed katelyn mara. Midline structures demonstrate normal morphology. The craniocervical junction is normal. Mild mucosal thickening ethmoid air cells. Globes are intact. IMPRESSION: 1. No acute intracranial abnormality seen. 2. However, generalized atrophy has progressed from 2009 and there is now mild to moderate hydrocepha sandra, likely in part due to ex vacuo enlargement. Further clinical correlation is recommended for poss ible NPH. 3. Moderate burden of chronic small vessel ischemic disease. 4. Mild chronic ethmoid sinus disease.
== END | disposition home or self-care (01) ==
LOC: RADMRIMAIN 10:36
PROVIDERS: ATTEND Psychiatry & Neurology Neurology
DX: G91.9 Hydrocephalus, unspecified (principal); G31.9 Degenerative disease of nervous system, unspecified; I67.82 Cerebral ischemia
CPT/HCPCS: 70551

== ENCOUNTER → 2021-03-23 | Outpatient (CLI) | payer MEDICARE ==
[2021-03-23 18:25] LABS: HCT 39.9 % (39.6-50.0); HGB 13.5 g/dL (13.0-17.0); MCH 34.3 pg (27.0-32.0); MCHC 33.8 g/dL (32.0-37.0); MCV 101.3 fL (80.0-97.0); Mean Platelet Volume 9.9 fL (9.5-12.2); Platelet Count 167 X 10*3/uL (140-440); RBC 3.94 X 10*6/uL (4.40-5.60); RDW 11.9 % (11.5-14.5); WBC 6.35 X 10*3/uL (4.50-10.00)
[2021-03-23 20:24] LABS: African American GFR (CKD) 60.1 (60.0-200.0); Anion Gap 6.7 mmol/L (4.00-12.00); Carbon Dioxide 26.3 mmol/L (21.6-31.8); Chol/HDL Ratio 2.42; LDL Cholesterol,Calculated 71.6 mg/dL (0.0-131.0); Non-African American GFR(CKD) 51.9 (60.0-200.0); Potassium 4.8 mmol/L (3.5-5.5); VLDL Calculation 13.4 mg/dL (5.00-40.00)
== END | disposition home or self-care (01) ==
LOC: LABWHC1 11:02
PROVIDERS: ATTEND Internal Medicine Cardiovascular Disease
DX: N18.2 Chronic kidney disease, stage 2 (mild) (principal); E78.5 Hyperlipidemia, unspecified; Z79.899 Other long term (current) drug therapy
CPT/HCPCS: 36415; 80051; 80061; 82565; 82947; 84450; 84460; 84520; 85027

== ENCOUNTER → 2021-08-26 | Outpatient (CLI) | payer MEDICARE ==
[2021-08-26 10:19] LABS: HGB 15.4 gm/dL (13.0-17.5); MCH 33.6 pg (25.0-35.0); MCHC 33.5 g/dL (31.0-37.0); MCV 100.4 fL (80.0-100.0); Mean Platelet Volume 7.1; Platelet Count 208 k/uL (150-450); RBC 4.58 m/uL (4.30-5.90); WBC 7.2 k/uL (3.8-10.6)
[2021-08-27 05:51] LABS: Chol/HDL Ratio 2.04 Ratio; HDL Cholesterol 60.9 mg/dL (40.00-60.00); LDL Cholesterol,Calculated 49.1 mg/dL (0.0-131.0); Triglycerides 69.8 mg/dL (0.00-149.00); VLDL Calculation 13.96 mg/dL (5.00-40.00)
[2021-08-27 15:37] LABS: African American GFR (CKD) 84.2 (60.0-200.0); Anion Gap 14.2 mmol/L (4.00-12.00); Blood Urea Nitrogen 18.9 mg/dL (9.0-27.0); Calcium 9.5 mg/dL (8.7-10.3); Carbon Dioxide 22.3 mmol/L (21.6-31.8); Non-African American GFR(CKD) 72.7 (60.0-200.0); Phosphorus 3.6 mg/dL (2.4-5.1); Potassium 4.4 mmol/L (3.5-5.5); Uric Acid 4.4 mg/dL (3.7-8.7)
== END | disposition home or self-care (01) ==
LOC: LABWHC1 09:30
PROVIDERS: ATTEND Internal Medicine Cardiovascular Disease
DX: I25.10 Atherosclerotic heart disease of native coronary artery without angina pectoris (principal); N18.31 Chronic kidney disease, stage 3a; E78.5 Hyperlipidemia, unspecified; Z79.899 Other long term (current) drug therapy
CPT/HCPCS: 36415; 80051; 80061; 82310; 82565; 82947; 83880; 83970; 84100; 84450; 84460; 84520; 84550; 85027

== ENCOUNTER 2021-12-17 18:05 | Inpatient (IN) | payer MEDICARE ==
--- NOTE | 2021-12-17 18:40 | ED ---
General Adult HPI - General Chief complaint: Extremity Injury, Upper Stated complaint: L Leg fracture Time Seen by Provider: 12/17/21 18:06 Source: patient, EMS, old records reviewed (Reviewed report from [facility]) Mode of arrival: EMS Limitations: no limitations - History of Present Illness Initial comments: Patient is a pleasant 81-year-old male presenting to the emergency department with concerns for left hip fracture. Patient had a fall 2 days ago and another one today. Patient is a poor historian, history of dementia and provides no additional history. Patient amiss to having some discomfort in the left hip. - Related Data Home Medications Medication Instructions Recorded Confirmed Ascorbic Acid [Vitamin C] 500 mg PO DAILY 05/07/20 05/07/20 Aspirin EC [Ecotrin Low Dose] 81 mg PO DAILY 05/07/20 05/07/20 Baclofen [Lioresal] 10 mg PO BID PRN 05/07/20 05/07/20 Donepezil [Aricept] 10 mg PO DAILY 05/07/20 05/07/20 Ergocalciferol [Vitamin D2 50,000 unit PO WE 05/07/20 05/07/20 (DRISDOL)] Folic Acid 1,333mcg 1,333 mcg PO DAILY 05/07/20 05/07/20 Magnesium 250 mg PO DAILY 05/07/20 05/07/20 Memantine HCl [Memantine HCl ER] 28 mg PO DAILY 05/07/20 05/07/20 Multivitamins, Thera [Multivitamin 1 tab PO DAILY 05/07/20 05/07/20 (formulary)] Previous Rx's Medication Instructions Recorded Carvedilol [Coreg] 3.125 mg PO BID #60 tablet 05/08/20 Isosorbide Mononitrate ER [Imdur] 30 mg PO DAILY #30 tab.er.24h 05/08/20 Nitroglycerin Sl Tabs [Nitrostat] 0.4 mg SUBLINGUAL Q5M PRN #25 tab 05/08/20 Quinapril HCl 10 mg PO DAILY #30 tab 05/08/20 Allergies Allergy/AdvReac Type Severity Reaction Status Date / Time acetaminophen [From Vicodin] Allergy Rash/Hives Verified 05/07/20 17:21 bacitracin Allergy Rash/Hives Verified 05/07/20 17:21 hydrocodone [From Vicodin] Allergy Rash/Hives Verified 05/07/20 17:21 sulfadimethoxine Allergy Rash/Hives Verified 05/07/20 17:21 trimethoprim Allergy Rash/Hives Verified 05/07/20 17:21 Review of Systems ROS Statement: Those systems with pertinent positive or pertinent negative responses have been documented in the HPI. ROS Other: All systems not noted in ROS Statement are negative. Constitutional: Denies: fever Eyes: Denies: eye pain ENT: Denies: ear pain Respiratory: Denies: dyspnea Cardiovascular: Denies: chest pain Endocrine: Denies: fatigue Gastrointestinal: Denies: abdominal pain Genitourinary: Denies: dysuria Musculoskeletal: Reports: as per HPI. Denies: back pain Skin: Denies: rash Neurological: Denies: weakness Past Medical History Past Medical History: Coronary Artery Disease (CAD), Dementia, GERD/Reflux, Hyperlipidemia, Hypertension Additional Past Medical History / Comment(s): chronic back pain,CKD,Thoracic aortic aneurysm,hydrocele,cardiomyopathy, History of Any Multi-Drug Resistant Organisms: None Reported Past Surgical History: Cholecystectomy, Coronary Bypass/CABG, Orthopedic Surgery Past Anesthesia/Blood Transfusion Reactions: No Reported Reaction Past Psychological History: No Psychological Hx Reported Smoking Status: Former smoker Past Alcohol Use History: None Reported Past Drug Use History: None Reported General Exam Limitations: no limitations General appearance: alert, in no apparent distress Head exam: Present: normocephalic Eye exam: Present: normal appearance Respiratory exam: Present: normal lung sounds bilaterally Cardiovascular Exam: Present: regular rate, normal rhythm Expanded Peripheral pulses: 2+: Posterior Tibialis (L), Dorsalis Pedis (L) GI/Abdominal exam: Present: soft. Absent: tenderness Extremities exam: Present: tenderness (Left anterior hip), other (Left leg shortened and rotated) Neurological exam: Present: alert. Absent: motor sensory deficit Expanded Patient oriented to: Present: person. Absent: place, time Motor strength exam: RUE: 5, LUE: 5, RLE: 5, LLE: 5 Psychiatric exam: Present: normal affect, normal mood Skin exam: Present: normal color Course Vital Signs 12/17/21 18:06 Temperature 97.8 F Pulse Rate 56 L Respiratory 18 Rate Blood Pressure 138/76 O2 Sat by Pulse 96 Oximetry Medical Decision Making - Medical Decision Making Patient updated. X-rays reviewed. Case discussed with Dr. Maynard, who will admit covering for orthopedic call. Patient does not feel he needs pain medicine at this time. Disposition Clinical Impression: Subcapital fracture of left hip Disposition: ADMITTED IP TO THIS HOSP Is patient prescribed a controlled substance at d/c from ED?: No Referrals: Bill Smith MD [Primary Care Provider] - 1-2 days Decision Time: 19:24
[2021-12-17] MEDS ORDERED: NALOXONE 0.4 MG/ML 1 ML VIAL IV PRN (19:24)
[2021-12-17] MEDS ORDERED: MORPHINE SULFATE 4 MG/ML SYRINGE IV PRN (19:24)
[2021-12-17] MEDS: SODIUM CHLORIDE 0.9% 1,000 ML IV SCH (20:06)
--- NOTE | 2021-12-18 02:56 | P.CONS ---
History of Present Illness - Reason for Consult Consult date: 12/18/21 - History of Present Illness The patient is a 81-year-old male with a PMH of coronary artery disease status post stenting, CHF, dementia, hypertension, hyperlipidemia who was transferred from [facility] where he had presented earlier today for left hip pain. The patient was a poor historian due to his baseline dementia and history was thereby obtained from the chart. The patient reportedly presented to the for fall 2 days prior where he fell on his left side hip and shoulder. The patient denied head trauma or any other injuries. The patient had reportedly been seen by EMS at that time but was not brought into the hospital. On the day of presentation, the patient had reportedly fallen and the was not able to lift them up at which time she activated EMS and the patient was brought to [facility] for evaluation. The workup from [facility] was all reviewed with a CT head and cervical spine showing degenerative and nonspecific white matter changes along with central ventricular dilatation which could be secondary to normal pressure hydrocephalus or hydrocephalus. CT cervical spine without contrast revealed severe multilevel degenerative disc disease but the study was nondiagnostic due to artifact and low resolution. Hip x-rays revealed a mildly displaced likely subcapital left femoral neck fracture. Laboratory evaluation revealed a sodium 139, potassium 4, chloride 109, CO2 24, glucose 110, BUN 25, creatinine 1.2, calcium 9.5, AST 29, ALT 17, alk phos 78, total bilirubin 2.3, magnesium 2.3, influenza and COVID-19 PCR negative, WBC count 7.2, hemoglobin 13.8. At the time of interview, the patient reported mild left hip pain but otherwise denied any active complaints. He denied chest discomfort, shortness of breath, fever, chills, cough, nausea, vomiting, abdominal pain, diarrhea. He however was not able to recall why he is in the hospital but states that he may have had an accident or may have fallen. Review of systems: Pertinent positives and negatives as discussed in HPI, a complete review of systems was performed and all other systems are negative. Physical examination: General: non toxic, no distress, appears at stated age, overweight Derm: no unusual rashes/lesions no unusual ecchymoses, warm, dry Head: atraumatic, normocephalic, symmetric Eyes: EOMI, no lid lag, anicteric sclera, pupils equal round reactive to light ENT: Nose and ears atraumatic, no thrush, no pharyngeal erythema Neck: No thyromegaly, no cervical lymphadenopathy, trachea midline, supple Mouth: no lip lesion, mucus membranes moist Cardiovascular: S1S2 reg, no murmur, positive posterior tibial pulse bilateral, no edema, capillary refill less than 2 seconds Lungs: CTA bilateral, no rhonchi, no rales , no accessory muscle use Abdominal: soft, nontender to palpation, no guarding, no appreciable organomegaly, normal bowel sounds Ext: no gross muscle atrophy, muscle strength 5 out of 5 in all 4 extremities grossly except left lower extremity due to pain, left hip pain with passive movement in any plane, no contractures, Neuro: CN II-XI grossly intact, light touch intact all 4 extremities, finger to nose within normal limits, Psych: Alert, oriented to person and place only, not oriented to time Assessment/plan Traumatic left hip fracture -Defer management including pain control to the primary surgical service -Obtain cardiology consult for preoperative clearance in light of patient's extensive cardiac history Chronic conditions: Coronary artery disease, hypertension, hyperlipidemia, dementia -Continue with home meds DVT prophylaxis -Heparin subq We appreciate this opportunity to be involved in this patient's care. We will follow the patient with you. For any further questions, please not hesitate to contact the sound inpatient team. Past Medical History Past Medical History: Coronary Artery Disease (CAD), Dementia, GERD/Reflux, Hyperlipidemia, Hypertension Additional Past Medical History / Comment(s): chronic back pain,CKD,Thoracic aortic aneurysm,hydrocele,cardiomyopathy, History of Any Multi-Drug Resistant Organisms: None Reported Past Surgical History: Cholecystectomy, Coronary Bypass/CABG, Orthopedic Surgery Past Anesthesia/Blood Transfusion Reactions: No Reported Reaction Past Psychological History: No Psychological Hx Reported Additional Psychological History / Comment(s): dementia Smoking Status: Never smoker Past Alcohol Use History: None Reported Past Drug Use History: None Reported Medications and Allergies Home Medications Medication Instructions Recorded Confirmed Type Ascorbic Acid [Vitamin C] 500 mg PO DAILY 05/07/20 12/17/21 History Aspirin EC [Ecotrin Low Dose] 81 mg PO DAILY 05/07/20 12/17/21 History Baclofen [Lioresal] 10 mg PO TID PRN 05/07/20 12/17/21 History Multivitamins, Thera [Multivitamin 1 tab PO DAILY 05/07/20 12/17/21 History (formulary)] Cholecalciferol [Vitamin D3 (25 25 mcg PO DAILY 12/17/21 12/17/21 History Mcg = 1000 Iu)] Ibuprofen [Advil] 200 mg PO BID PRN 12/17/21 12/17/21 History Quinapril HCl [Accupril] 5 mg PO DAILY 12/17/21 12/17/21 History carvediloL [Coreg] 6.25 mg PO BID 12/17/21 12/17/21 History Allergies Allergy/AdvReac Type Severity Reaction Status Date / Time acetaminophen [From Vicodin] Allergy Rash/Hives Verified 12/17/21 19:47 bacitracin Allergy Rash/Hives Verified 12/17/21 19:47 hydrocodone [From Vicodin] Allergy Rash/Hives Verified 12/17/21 19:47 sulfadimethoxine Allergy Rash/Hives Verified 12/17/21 19:47 trimethoprim Allergy Rash/Hives Verified 12/17/21 19:47 Physical Exam Vitals: Vital Signs Temp Pulse Pulse Resp BP BP Pulse Ox 12/17/21 22:11 97.9 F 68 12 149/81 96 12/17/21 18:06 97.8 F 56 L 18 138/76 96 Intake and Output 12/17/21 12/17/21 12/18/21 14:59 22:59 06:59 Other: Voiding Method Incontinent External Catheter Weight 81.647 kg
[2021-12-18] MEDS ORDERED: BACLOFEN 10 MG TAB PO PRN (03:00)
[2021-12-18] MEDS: HEPARIN SODIUM,PORCINE/PF 5,000 UNIT/0.5 ML SYRINGE SQ SCH ×2 (07:24→22:21)
[2021-12-18] MEDS: CHOLECALCIFEROL 25 MCG (1000 IU) TABLET PO SCH (07:24)
[2021-12-18] MEDS: MULTIVITAMINS, THERA 1 EACH TAB PO SCH (07:24)
[2021-12-18] MEDS: carvediloL 6.25 MG TAB PO SCH (08:14)
[2021-12-18] MEDS: lisinopriL 5 MG TAB PO SCH (08:14)
[2021-12-18] MEDS ORDERED: ASPIRIN 81 MG PO SCH (09:00)
--- NOTE | 2021-12-18 09:00 | P.HPOR ---
History of Present Illness H&P Date: 12/18/21 This patient is a 81-year-old male with a past medical history of hypertension, hyperlipidemia, coronary artery disease status-post stenting, CHF, dementia who was transferred to [facility] emergency department last evening from [facility]. The patient has dementia and is unable to provide history, therefore history is obtained from the chart and nursing. Per the chart, the patient had a fall 2 days ago at home landing onto the left hip. The patient lives with his , and his had difficulty lifting him yesterday so EMS was called. X-rays of the left hip at the [facility] emergency department revealed a left femoral neck fracture. The patient was transferred to [facility] emergency department for further treatment. The patient was admitted under the care of Dr. Maynard, with a consult placed to internal medicine for preoperative medical clearance. Patient is seen and examined bedside this morning. He is unable to give any history regarding his fall. He states his pain is well-controlled at this time. He has no complaints or concerns. Vital signs stable. Past Medical History Past Medical History: Coronary Artery Disease (CAD), Dementia, GERD/Reflux, Hyperlipidemia, Hypertension Additional Past Medical History / Comment(s): chronic back pain,CKD,Thoracic aortic aneurysm,hydrocele,cardiomyopathy, History of Any Multi-Drug Resistant Organisms: None Reported Past Surgical History: Cholecystectomy, Coronary Bypass/CABG, Orthopedic Surgery Past Anesthesia/Blood Transfusion Reactions: No Reported Reaction Past Psychological History: No Psychological Hx Reported Additional Psychological History / Comment(s): dementia Smoking Status: Never smoker Past Alcohol Use History: None Reported Past Drug Use History: None Reported Medications and Allergies Home Medications Medication Instructions Recorded Confirmed Type Ascorbic Acid [Vitamin C] 500 mg PO DAILY 05/07/20 12/17/21 History Aspirin EC [Ecotrin Low Dose] 81 mg PO DAILY 05/07/20 12/17/21 History Baclofen [Lioresal] 10 mg PO TID PRN 05/07/20 12/17/21 History Multivitamins, Thera [Multivitamin 1 tab PO DAILY 05/07/20 12/17/21 History (formulary)] Cholecalciferol [Vitamin D3 (25 25 mcg PO DAILY 12/17/21 12/17/21 History Mcg = 1000 Iu)] Ibuprofen [Advil] 200 mg PO BID PRN 12/17/21 12/17/21 History Quinapril HCl [Accupril] 5 mg PO DAILY 12/17/21 12/17/21 History carvediloL [Coreg] 6.25 mg PO BID 12/17/21 12/17/21 History Allergies Allergy/AdvReac Type Severity Reaction Status Date / Time acetaminophen [From Vicodin] Allergy Rash/Hives Verified 12/17/21 19:47 bacitracin Allergy Rash/Hives Verified 12/17/21 19:47 hydrocodone [From Vicodin] Allergy Rash/Hives Verified 12/17/21 19:47 sulfadimethoxine Allergy Rash/Hives Verified 12/17/21 19:47 trimethoprim Allergy Rash/Hives Verified 12/17/21 19:47 Physical Examination On examination, the patient is sitting up in bed in no apparent distress. He is alert and oriented 1. His head appears normocephalic and atraumatic. His breathing appears unlabored. On inspection of his bilateral upper extremities, there are no obvious deformities or signs of trauma. On inspection his right lower extremity, there are no obvious deformities or signs of trauma. On inspection of the left hip, there are no lacerations, abrasions. Skin is intact. There is diffuse pain with palpation of the hip. No pain to palpation of the left knee, lower leg, ankle, foot. There is moderate pain with any attempt at passive range of motion of the left hip. He has good strength and [id number] of the left ankle and toes. Motor and sensory function is intact of the left lower extremity. Dorsalis pedis pulse is easily palpable, the left lower extremity is warm and well-perfused. Calf is soft and nontender to palpation. Results Left hip x-ray from [facility] 12/17/21: Mildly displaced left femoral neck fracture. Left shoulder x-ray [facility] 12/17/21 (Per report, images not available): No acute fracture. CT head WO contrast 12/17/21, CT cervical spine WO contrast 12/17/21 reports reviewed. Assessment and Plan Assessment: Left hip femoral neck fracture Plan: - The clinical and imaging findings were discussed with the patient and his nurse. Patient was discussed in detail with Dr. Tom. Recommend left hip hemiarthroplasty for patient's left femoral neck fracture this afternoon, pending medical clearance and consent. - Internal medicine has been consulted for pre-operative medical clearance. - Pain management as needed. - Non-weight bearing left lower extremity. - NPO diet.
[2021-12-18] MEDS ORDERED: ROPIVACAINE/EPI/CLONIDINE/KET 50 ML SYRINGE MISCELLANE PRN (09:24)
[2021-12-18] MEDS ORDERED: TRANEXAMIC ACID 1,000 MG in SODIUM CHLORIDE 0.9% 100 ML IVPB ONE ×4 (09:24)
[2021-12-18 10:02] LABS: HCT 35.2 % (39.6-50.0); HGB 11.9 g/dL (13.0-17.0); MCHC 33.8 g/dL (32.0-37.0); MCV 97.5 fL (80.0-97.0); Mean Platelet Volume 9.8 fL (9.5-12.2); Platelet Count 122 X 10*3/uL (140-440); RBC 3.61 X 10*6/uL (4.40-5.60); RDW 11.9 % (11.5-14.5); WBC 6.05 X 10*3/uL (4.50-10.00)
[2021-12-18 10:15] LABS: African American GFR (CKD) 81.6 (60.0-200.0); BUN/Creat Ratio 21.78 Ratio (12.00-20.00); Calcium 8.6 mg/dL (8.7-10.3); Carbon Dioxide 23.1 mmol/L (20.0-27.5); Non-African American GFR(CKD) 70.4 (60.0-200.0); Potassium 3.9 mmol/L (3.5-5.5)
--- NOTE | 2021-12-18 10:24 | ECHOF ---
Referral Reason:preop eval MEASUREMENTS -------- HEIGHT: 175.3 cm WEIGHT: 81.6 kg BP: 149/81 RVIDd: 3.4 cm (< 3.3) IVSd: 1.3 cm (0.6 - 1.1) LVIDd: 4.6 cm (3.9 - 5.3) LVPWd: 1.3 cm (0.6 - 1.1) IVSs: 1.8 cm LVIDs: 3.6 cm LVPWs: 1.6 cm LA Diam: 4.5 cm (2.7 - 3.8) LAESV Index (A-L): 27.90 ml/m Ao Diam: 3.6 cm (2.0 - 3.7) AV Cusp: 2.3 cm (1.5 - 2.6) MV EXCURSION: 14.230 mm (> 18.000) MV EF SLOPE: 81 mm/s (70 - 150) EPSS: 0.6 cm RAP: 5.00 mmHg RVSP: 29.57 mmHg FINDINGS -------- This was a technically adequate study. The left ventricular size is normal. There is mild concentric left ventricular hypertrophy. Overa ll left ventricular systolic function is normal with, an EF between 55 - 60 %. The right ventricle is mildly enlarged. Normal LA size by volume 22+/-6 ml/m2. The right atrium is normal in size. The aortic valve is trileaflet, and appears structurally normal. No aortic stenosis or regurgitation. There is trace to mild mitral regurgitation. Mild tricuspid regurgitation present. Right ventricular systolic pressure is normal at < 35 mmHg. Trace/mild (physiologic) pulmonic regurgitation. The aortic root size is normal. IVC Not well visulized. There is no pericardial effusion. CONCLUSIONS -------- 1. The left ventricular size is normal. 2. There is mild concentric left ventricular hypertrophy. 3. Overall left ventricular systolic function is normal with, an EF between 55 - 60 %. 4. The right ventricle is mildly enlarged. 5. The aortic valve is trileaflet, and appears structurally normal. No aortic stenosis or regurgitati on. 6. There is trace to mild mitral regurgitation. 7. Mild tricuspid regurgitation present. 8. Trace/mild (physiologic) pulmonic regurgitation. 9. There is no pericardial effusion. LAB TECH: Katie Ritchie RDCS
--- NOTE | 2021-12-18 11:34 | P.CRDCN ---
History of Present Illness Consult date: 12/18/21 History of present illness: HISTORY OF PRESENT ILLNESS: This is a 81-year-old male with a past medical history significant for coronary artery disease, dementia, hypertension, and hyperlipidemia. Patient does not follow with a seat cover maker at [facility]. We have been asked to see the patient in consultation for surgical clearance. Patient examined at the bedside. Patient is admitted to the hospital after suffering a fall a few days ago. He was found to have a left hip fracture. He is scheduled for surgery today with or without. The patient is confused and is unable to provide a thorough HPI. He denies chest pain or pressure. He denies shortness of breath. EKG reveals sinus mechanism with no signs of acute ischemia Laboratory data: WBC 6.05. Hemoglobin 11.9. Platelet count 122. Sodium 131. Potassium 3.9. BUN 22. Creatinine 1.0. Current home cardiac medications include carvedilol 6.25 mg twice a day, quinapril 5 mg daily, aspirin 81 mg daily Echocardiogram completed revealing ejection fraction 55-60%, trace to mild mitral regurgitation, and mild tricuspid regurgitation REVIEW OF SYSTEMS: At the time of my exam: Unable to obtain thorough review of systems secondary to altered mental status PHYSICAL EXAM: VITAL SIGNS: Reviewed. GENERAL: Well-developed in no acute distress. HEENT: Head is normocephalic. Pupils are equal, round. Sclerae anicteric. Mucous membranes of the mouth are moist. Neck supple. No JVD or thyromegaly LUNGS: Respirations even and unlabored. Lungs essentially clear to auscultation bilaterally. HEART: Regular rate and rhythm. S1 and S2 heard. ABDOMEN: Soft. Nondistended. Nontender. EXTREMITIES: No clubbing or cyanosis. Peripheral pulses intact. No lower extremity edema NEUROLOGIC: Awake and alert. Confused ASSESSMENT: Left hip fracture, status post fall Dementia Coronary artery disease with previous CABG Hypertension Hyperlipidemia PLAN: 2D echo obtained and reviewed Continue home cardiac medications Patient denies any angina and is clinically euvolemic without any signs of acute CHF Patient is moderate risk to undergo surgery today with orthopedics Recommend cautious fluid administration Recommend optimal blood pressure control Further recommendations pending patient's course Nurse practitioner note has been reviewed by physician. Signing provider agrees with the documented findings, assessment, and plan of care. Past Medical History Past Medical History: Coronary Artery Disease (CAD), Dementia, GERD/Reflux, Hyperlipidemia, Hypertension Additional Past Medical History / Comment(s): chronic back pain,CKD,Thoracic aortic aneurysm,hydrocele,cardiomyopathy, History of Any Multi-Drug Resistant Organisms: None Reported Past Surgical History: Cholecystectomy, Coronary Bypass/CABG, Orthopedic Surgery Past Anesthesia/Blood Transfusion Reactions: No Reported Reaction Past Psychological History: No Psychological Hx Reported Additional Psychological History / Comment(s): dementia Smoking Status: Never smoker Past Alcohol Use History: None Reported Past Drug Use History: None Reported Medications and Allergies Home Medications Medication Instructions Recorded Confirmed Type Ascorbic Acid [Vitamin C] 500 mg PO DAILY 05/07/20 12/17/21 History Aspirin EC [Ecotrin Low Dose] 81 mg PO DAILY 05/07/20 12/17/21 History Baclofen [Lioresal] 10 mg PO TID PRN 05/07/20 12/17/21 History Multivitamins, Thera [Multivitamin 1 tab PO DAILY 05/07/20 12/17/21 History (formulary)] Cholecalciferol [Vitamin D3 (25 25 mcg PO DAILY 12/17/21 12/17/21 History Mcg = 1000 Iu)] Ibuprofen [Advil] 200 mg PO BID PRN 12/17/21 12/17/21 History Quinapril HCl [Accupril] 5 mg PO DAILY 12/17/21 12/17/21 History carvediloL [Coreg] 6.25 mg PO BID 12/17/21 12/17/21 History Allergies Allergy/AdvReac Type Severity Reaction Status Date / Time acetaminophen [From Vicodin] Allergy Rash/Hives Verified 12/17/21 19:47 bacitracin Allergy Rash/Hives Verified 12/17/21 19:47 hydrocodone [From Vicodin] Allergy Rash/Hives Verified 12/17/21 19:47 sulfadimethoxine Allergy Rash/Hives Verified 12/17/21 19:47 trimethoprim Allergy Rash/Hives Verified 12/17/21 19:47 Physical Exam Vitals: Vital Signs Temp Pulse Pulse Resp BP BP Pulse Ox 12/18/21 07:51 98.5 F 70 14 145/72 12/17/21 22:11 97.9 F 68 12 149/81 96 12/17/21 18:06 97.8 F 56 L 18 138/76 96 Intake and Output 12/17/21 12/18/21 12/18/21 22:59 06:59 14:59 Other: Voiding Method Incontinent External Catheter Weight 81.647 kg Results 12/18/21 05:04 12/18/21 05:04 Current Medications Generic Name Dose Route Start Last Admin Trade Name Freq PRN Reason Stop Dose Admin Acetaminophen 650 mg 12/17/21 19:24 Acetaminophen Tab 325 Mg Tab PO Q6HR PRN Mild Pain or Fever > 100.5 Aspirin 81 mg 12/18/21 09:00 12/18/21 07:24 Aspirin 81 Mg PO Not Given DAILY [facility] Baclofen 10 mg 12/18/21 03:00 Baclofen 10 Mg Tab PO TID PRN Pain Carvedilol 6.25 mg 12/18/21 07:30 12/18/21 08:14 Carvedilol 6.25 Mg Tab PO 6.25 mg BID-W/MEALS [facility] Administration Cholecalciferol 25 mcg 12/18/21 09:00 12/18/21 07:24 Cholecalciferol 25 Mcg (1000 Iu) Tablet PO Not Given DAILY [facility] Heparin Sodium (Porcine) 5,000 unit 12/18/21 08:00 12/18/21 07:24 Heparin Sodium,Porcine/Pf 5,000 Unit/0.5 Ml Syringe SQ Not Given Q8HR [facility] Sodium Chloride 1,000 mls @ 75 mls/hr 12/17/21 19:30 12/17/21 20:06 Saline 0.9% IV 75 mls/hr .[id number] [facility] Administration Tranexamic Acid 1,000 mg/ 110 mls @ 200 mls/hr 12/18/21 09:24 Sodium Chloride IVPB 12/18/21 09:56 ONCE ONE Protocol Tranexamic Acid 1,000 mg/ 110 mls @ 200 mls/hr 12/18/21 09:24 Sodium Chloride IVPB 12/18/21 09:56 ONCE ONE Protocol Cefazolin Sodium 2 gm/ Sodium 50 mls @ 100 mls/hr 12/18/21 09:24 Chloride IVPB 12/19/21 03:25 ONCE PRN Pre-Op Lisinopril 5 mg 12/18/21 09:00 12/18/21 08:14 Lisinopril 5 Mg Tab PO 5 mg DAILY [facility] Administration Morphine Sulfate 4 mg 12/17/21 19:24 Morphine Sulfate 4 Mg/Ml Syringe IV Q4HR PRN Severe Pain Multivitamins 1 each 12/18/21 09:00 12/18/21 07:24 Multivitamins, Thera 1 Each Tab PO Not Given DAILY [facility] Naloxone HCl 0.2 mg 12/17/21 19:24 Naloxone 0.4 Mg/Ml 1 Ml Vial IV Q2M PRN Opioid Reversal Ropivacain/Epineph/Clonidin/Ketorol 100 ml 12/18/21 05:00 Ropivacaine/Epi/Clonidine/Ket 50 Ml Syringe MISCELLANE 12/19/21 00:01 ONCE PRN INTRA-OP Intake and Output 12/17/21 12/18/21 12/18/21 22:59 06:59 14:59 Other: Voiding Method Incontinent External Catheter Weight 81.647 kg
[2021-12-18] MEDS ORDERED: IV FLUID CONTINUATION 1,000 ML IV ONE (14:44)
[2021-12-18] MEDS ORDERED: TRANEXAMIC ACID 1,000 MG/10 ML VIAL ONE (16:30)
[2021-12-18] MEDS ORDERED: SODIUM CHLORIDE 0.9% 100 ML BAG ONE (16:30)
[2021-12-18] MEDS ORDERED: PROPOFOL 10 MG/ML 20 ML VIAL IV ONE (16:30)
[2021-12-18] MEDS ORDERED: MIDAZOLAM 2 MG/2 ML VIAL ONE (16:30)
[2021-12-18] MEDS ORDERED: ePHEDrine 50 MG/ML 1 ML AMP ONE (16:30)
[2021-12-18] MEDS ORDERED: PHENYLEPHRINE-0.9% NACL SYG 1,000 MCG/10 ML SYRINGE ONE (16:30)
[2021-12-18] MEDS ORDERED: fentaNYL (PF) 50 MCG/ML 2 ML AMP ONE (16:30)
[2021-12-18] MEDS ORDERED: ROCURONIUM 10 MG/ML (5 ML VIAL) IV ONE (16:30)
[2021-12-18] MEDS ORDERED: NEOSTIGMINE 1 MG/ML 10 ML VIAL ONE (16:30)
[2021-12-18] MEDS ORDERED: SUCCINYLCHOLINE CHLORIDE 100 MG/5 ML SYR IV ONE (16:30)
[2021-12-18] MEDS ORDERED: LIDOCAINE 1% INJ 10MG/ML (20 ML MDV) ONE (16:30)
[2021-12-18] MEDS ORDERED: GLYCOPYRROLATE 0.2 MG/ML 2 ML VIAL ONE (16:30)
[2021-12-18] MEDS: SODIUM CHLORIDE 0.9% 1,000 ML IV SCH ×2 (16:54→21:00)
[2021-12-18] MEDS: ROPIVACAINE/EPI/CLONIDINE/KET 50 ML SYRINGE MISCELLANE PRN ×2 (17:30→18:52)
[2021-12-18] MEDS ORDERED: HYDROmorphone 0.5 MG/0.5 ML SYRINGE IVP PRN (19:25)
[2021-12-18] MEDS ORDERED: HYDROmorphone 0.2 MG/1 ML SYRINGE IVP PRN (19:25)
[2021-12-18] MEDS ORDERED: ONDANSETRON 4 MG/2 ML VIAL IVP PRN (19:25)
--- NOTE | 2021-12-18 19:35 | XR ---
EXAMINATION TYPE: XR Hip Limited LT DATE OF EXAM: 12/18/2021 COMPARISON: NONE HISTORY: Hip replacement TECHNIQUE: 3 views FINDINGS: Fluoroscopic images were obtained that show placement of left hip prosthesis. Components ar e in anatomic position. Acetabulum appears intact. IMPRESSION: No complicating process seen.
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
[2021-12-18] MEDS ORDERED: LACTATED RINGERS 1,000 ML IV ONE (20:17)
[2021-12-18] MEDS: SENNOSIDES-DOCUSATE SODIUM 1 EACH TAB PO SCH (22:20)
[2021-12-18] MEDS: ASPIRIN 81 MG PO SCH (22:21)
[2021-12-18] MEDS: HYDROmorphone 0.5 MG/0.5 ML SYRINGE IVP PRN (22:21)
[2021-12-19] MEDS: LACTATED RINGERS 1,000 ML IV SCH ×3 (04:15→16:41)
[2021-12-19] MEDS: carvediloL 6.25 MG TAB PO SCH ×3 (04:35→16:42)
[2021-12-19] MEDS: HYDROmorphone 0.5 MG/0.5 ML SYRINGE IVP PRN (06:31)
[2021-12-19] MEDS: CHOLECALCIFEROL 25 MCG (1000 IU) TABLET PO SCH (08:01)
[2021-12-19] MEDS: MULTIVITAMINS, THERA 1 EACH TAB PO SCH (08:01)
[2021-12-19] MEDS: lisinopriL 5 MG TAB PO SCH (08:01)
[2021-12-19] MEDS: ASPIRIN 81 MG PO SCH ×2 (08:01→20:08)
--- NOTE | 2021-12-19 09:02 | P.PN ---
Subjective Progress Note Date: 12/19/21 Acute events overnight. The patient is demented and confused, but this is his baseline. According to the sitter at bedside he is doing well. He denies excessive pain in his hip. Objective - Vital Signs Vital signs: Vital Signs Temp 98.4 F 12/19/21 02:00 Pulse 106 H 12/19/21 02:00 Resp 20 12/19/21 02:00 BP 160/84 12/19/21 02:00 Pulse Ox 94 L 12/19/21 02:00 Intake & Output 12/18/21 12/19/21 12/19/21 18:59 06:59 18:59 Intake Total 900 1280 Output Total 600 500 Balance 300 780 Weight 81.647 kg Intake: IV 900 100 Intake, IV Titration 1060 Amount Lactated Ringers 1,000 ml 900 @ 100 mls/hr IV .Q10H [facility] Rx#:[id number] Sodium Chloride 0.9% 1, 60 000 ml @ 75 mls/hr IV . [id number] [facility] Rx#:[id number] ceFAZolin 2 gm In Sodium 100 Chloride 0.9% 50 ml @ 100 mls/hr IVPB ONCE PRN Rx# :[id number] Oral 120 Output: Drainage 120 Left Hip 120 Urine 600 130 Estimated Blood Loss 250 Other: Voiding Method External Catheter External Catheter - Exam The patient is resting comfortably in his bed. He is alert and able to answer questions. A focused examination of the left lower extremity was conducted. On inspection there is a clean-appearing dressing over the anterior aspect of his hip with no active drainage. There is a Hemovac drain in place. There is a small amount of blood in the canister. The thigh and calf are soft. There is minimal pain with passive range of motion of the hip. He is able to actively plantarflex and dorsiflex his ankle and his toes. Sensation is intact to light touch in his left foot. - Labs CBC & Chem 7: 12/18/21 05:04 12/18/21 05:04 Labs: Abnormal Lab Results - Last 24 Hours (Table) 12/18/21 12/18/21 Range/Units 05:04 05:04 RBC 3.61 L (4.40-5.60) X 10*6/uL Hgb 11.9 L (13.0-17.0) g/dL Hct 35.2 L (39.6-50.0) % MCV 97.5 H (80.0-97.0) fL MCH 33.0 H (27.0-32.0) pg Plt Count 122 L (140-440) X 10*3/uL Chloride 110 H (96-109) mmol/L Anion Gap 8.00 L (10.00-18.00) mmol/L BUN/Creatinine Ratio 21.78 H (12.00-20.00) Ratio Calcium 8.6 L (8.7-10.3) mg/dL Assessment and Plan Assessment: Postoperative day #1 status post direct anterior left hip hemiarthroplasty for displaced femoral neck fracture Plan: 1. Weightbearing as tolerated on the left leg with assistance and a walker. Mobilize up out of bed to chair. 2. Postoperative antibiotics 3. DVT prophylaxis with aspirin 4. Preoperative medical management per internal medicine appreciated 5. We'll leave Hemovac drain in tomorrow since output is greater than 100 mL's since last night. 6. Discharge planning in process
[2021-12-19 09:06] LABS: Basophils # (A) 0.01 X 10*3/uL (0.00-0.10); Basophils % (A) 0.1 %; Eosinophils # (A) 0.34 X 10*3/uL (0.04-0.35); Eosinophils % (A) 4.7 %; Lymphocytes # (A) 0.76 X 10*3/uL (0.90-5.00); Lymphocytes % (A) 10.4 %; MCH 33.4 pg (27.0-32.0); MCHC 34.4 g/dL (32.0-37.0); MCV 97.3 fL (80.0-97.0); Mean Platelet Volume 9.8 fL (9.5-12.2); Monocytes % (A) 8.2 %; Neutrophils # (A) 5.54 X 10*3/uL (1.80-7.70); Neutrophils % (A) 76.2 %; Platelet Count 123 X 10*3/uL (140-440); RBC 3.29 X 10*6/uL (4.40-5.60); RDW 11.9 % (11.5-14.5); WBC 7.28 X 10*3/uL (4.50-10.00)
[2021-12-19] MEDS: HEPARIN SODIUM,PORCINE/PF 5,000 UNIT/0.5 ML SYRINGE SQ SCH ×3 (09:54→16:42)
[2021-12-19] MEDS ORDERED: lisinopriL 5 MG TAB PO STA (11:37)
[2021-12-19] MEDS: SODIUM CHLORIDE 0.9% 1,000 ML IV SCH (12:06)
--- NOTE | 2021-12-19 12:07 | PN ---
PROGRESS NOTE FOLLOW-UP NOTE: This is a 81-year-old gentleman with known coronary artery disease, status post prior bypass surgery, dementia, hypertension, dyslipidemia, who was admitted to hospital following a fall with left hip fracture. Cardiology had been consulted as part of preoperative cardiac evaluation. On an echocardiogram we performed, patient has normal LV systolic function. He tolerated the surgery well. This morning he appears comfortable at rest. On exam, afebrile. Heart rate is 100 beats per minute. Blood pressure is 158/80. Respiratory rate is 18. Oxygen saturation is 94% on 2 L. chest exam reveals good air entry bilaterally. Heart exam reveals first and second heart sounds. No gallop. Abdomen soft. Examination of extremities did not reveal any edema. Peripheral pulses are palpable. ASSESSMENT: 1. Coronary artery disease, status post coronary artery bypass grafting. 2. Status post left hip replacement surgery. 3. Uncontrolled hypertension. PLAN: I will increase the dose of lisinopril to 10 mg daily. I reviewed echo findings. I spoke to the daughter at bedside. I will check lipid profile and start him on statins. MMODL / IJN: [id number] /
[2021-12-19] MEDS: traMADol 50 MG TAB PO PRN ×2 (14:51→20:09)
[2021-12-19] MEDS: ACETAMINOPHEN TAB 325 MG TAB PO PRN ×2 (14:51→20:08)
--- NOTE | 2021-12-19 15:04 | FL ---
Fluoroscopy HISTORY: Hip replacement 42 seconds fluoroscopy time supplied to the referring clinician. 6 intraoperative C-arm images docum ent the procedure. See dictated report from orthopedic surgery.
--- NOTE | 2021-12-19 19:46 | P.PN ---
Progress Note - Text Progress Note Date: 12/19/21 History of presenting complaint: This is a very pleasant [address] Smith. Chronic stable medical conditions include hyperlipidemia, GERD, mild Alzheimer's dementia, cardiomyopathy, hypertension, chronic low back pain, chronic kidney disease, coronary artery disease with history of bypass years ago. Patient now presents with left displaced femoral neck fracture. Underwent on December [address] Tom. December 19: Sitting up in bed. Pain control. at the bedside. Not too keen to eat as he does not like hospital food. No nausea vomiting. No chest pain. Did walk about 20 feet with a rolling walker with physical therapy. Review of systems: Was done for constitutional, cardiovascular, GI, pulmonary. relevant finding as above Active Medications Acetaminophen (Acetaminophen Tab 325 Mg Tab) 650 mg PO Q6HR PRN PRN Reason: Mild Pain or Fever > 100.5 Last Admin: 12/19/21 14:51 Dose: 650 mg Documented by: Aspirin (Aspirin 81 Mg) 81 mg PO BID [facility] Last Admin: 12/19/21 08:01 Dose: 81 mg Documented by: Baclofen (Baclofen 10 Mg Tab) 10 mg PO TID PRN PRN Reason: Pain Carvedilol (Carvedilol 6.25 Mg Tab) 6.25 mg PO BID-W/MEALS [facility] Last Admin: 12/19/21 16:42 Dose: 6.25 mg Documented by: Cholecalciferol (Cholecalciferol 25 Mcg (1000 Iu) Tablet) 25 mcg PO DAILY [facility] Last Admin: 12/19/21 08:01 Dose: 25 mcg Documented by: Heparin Sodium (Porcine) (Heparin Sodium,Porcine/Pf 5,000 Unit/0.5 Ml Syringe) 5,000 unit SQ Q8HR [facility] Last Admin: 12/19/21 16:42 Dose: 5,000 unit Documented by: Hydromorphone HCl (Hydromorphone 0.2 Mg/1 Ml Syringe) 0.2 mg IVP Q3HR PRN PRN Reason: Pain Scale 4 to 6 Hydromorphone HCl (Hydromorphone 0.5 Mg/0.5 Ml Syringe) 0.125 mg IVP Q3HR PRN PRN Reason: Pain Scale 1 to 3 Hydromorphone HCl (Hydromorphone 0.5 Mg/0.5 Ml Syringe) 0.5 mg IVP Q3HR PRN PRN Reason: Pain Scale 7 to 10 Last Admin: 12/19/21 06:31 Dose: 0.5 mg Documented by: Sodium Chloride (Saline 0.9%) 1,000 mls @ 75 mls/hr IV .[id number] [facility] Last Admin: 12/19/21 12:06 Dose: Not Given Documented by: Lactated Ringer's (Lactated Ringers) 1,000 mls @ 100 mls/hr IV .Q10H [facility] Last Admin: 12/19/21 16:41 Dose: 100 mls/hr Documented by: Lisinopril (Lisinopril 10 Mg Tab) 10 mg PO DAILY [facility] Multivitamins (Multivitamins, Thera 1 Each Tab) 1 each PO DAILY [facility] Last Admin: 12/19/21 08:01 Dose: 1 each Documented by: Naloxone HCl (Naloxone 0.4 Mg/Ml 1 Ml Vial) 0.2 mg IV Q2M PRN PRN Reason: Opioid Reversal Ondansetron HCl (Ondansetron 4 Mg/2 Ml Vial) 4 mg IVP Q24HR PRN PRN Reason: Nausea And Vomiting Senna/Docusate Sodium (Sennosides-Docusate Sodium 1 Each Tab) 2 each PO HS [facility] Last Admin: 12/18/21 22:20 Dose: 2 each Documented by: Tramadol HCl (Tramadol 50 Mg Tab) 50 mg PO Q6HR PRN PRN Reason: Pain Last Admin: 12/19/21 14:51 Dose: 50 mg Documented by: Past medical history to include: Hyperlipidemia, GERD, Alzheimer's dementia mild, cardiomyopathy, hypertension, chronic low back pain, chronic kidney disease, thoracic aortic aneurysm, coronary artery disease with bypass Social history: 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 . Does smoke in the past. No significant alcohol history Family history: Reviewed, noncontributory to presentation Physical examination: VITAL SIGNS: 97.9, 80, 18, 135/78, 97% room air GENERAL: Propper in bed, awake, comfortable EYES: Pupils equal. Conjunctiva normal. HEENT: External appearance of nose and ears normal, oral cavity grossly normal. NECK: JVD not raised; masses not palpable. HEART: First and second heart sounds are normal; no edema. LUNGS: Respiratory rate normal; clear to auscultation. MUSCULAR skeletal: Evidence of OA. Dressing over the incision site ABDOMEN: Soft, nontender, liver spleen not palpable, no masses palpable. PSYCH: Patient is able to answer simple questions.. INVESTIGATIONS, reviewed in the clinical context: White count 7.2 hemoglobin 11 platelets 123 potassium 3.9 creatinine 1.0 Labs from 08/26/2021 Hemoglobin 15.4. Assessment and plan: -left displaced femoral neck fracture. Underwent on December [address] Dr. Tom. Aspirin 80 mg twice a day for DVT prophylaxis -Coronary artery disease prior history of coronary bypass Coreg 6.25 mg by mouth twice a day. Aspirin -Hyperlipidemia -Cognitive impairment probably late onset Alzheimer's dementia -Essential hypertension Coreg 6.25 mg by mouth twice a day Accupril 5 mg daily -Primary osteoarthritis multiple joints bilaterally Pain medications as needed -Acute postprocedure blood loss anemia as expected from surgery At iron supplement Home medications to continue. Care was discussed with the patient and at the bedside. Questions answered. Thank you Dr. Tom
[2021-12-19] MEDS: SENNOSIDES-DOCUSATE SODIUM 1 EACH TAB PO SCH (20:07)
[2021-12-20] MEDS: HEPARIN SODIUM,PORCINE/PF 5,000 UNIT/0.5 ML SYRINGE SQ SCH ×3 (00:11→15:36)
[2021-12-20] MEDS: LACTATED RINGERS 1,000 ML IV SCH ×3 (03:00→20:29)
[2021-12-20] MEDS: traMADol 50 MG TAB PO PRN ×3 (05:01→20:25)
[2021-12-20] MEDS: ACETAMINOPHEN TAB 325 MG TAB PO PRN (05:02)
[2021-12-20] MEDS: carvediloL 6.25 MG TAB PO SCH ×2 (07:35→15:36)
[2021-12-20] MEDS: ASCORBIC ACID 500 MG TAB PO SCH (07:36)
[2021-12-20] MEDS: CHOLECALCIFEROL 25 MCG (1000 IU) TABLET PO SCH (07:36)
[2021-12-20] MEDS: FERROUS SULFATE 325 MG TAB PO SCH ×2 (07:36→15:36)
[2021-12-20] MEDS: MULTIVITAMINS, THERA 1 EACH TAB PO SCH (07:36)
[2021-12-20] MEDS: ASPIRIN 81 MG PO SCH ×2 (07:36→20:25)
[2021-12-20] MEDS: lisinopriL 10 MG TAB PO SCH (07:36)
--- NOTE | 2021-12-20 09:04 | P.PN ---
Subjective Progress Note Date: 12/20/21 The patient is doing well with no complaints. He is up with therapy yesterday. Objective - Vital Signs Vital signs: Vital Signs Temp 98.4 F 12/20/21 07:35 Pulse 79 12/20/21 07:35 Resp 18 12/20/21 07:35 BP 122/74 12/20/21 07:35 Pulse Ox 94 L 12/20/21 07:35 Intake & Output 12/19/21 12/20/21 12/20/21 18:59 06:59 18:59 Intake Total 540 1180 Output Total 300 1250 Balance 240 -70 Intake: Intake, IV Titration 1000 Amount Lactated Ringers 1,000 ml 1000 @ 100 mls/hr IV .Q10H [facility] Rx#:[id number] Oral 540 180 Output: Drainage 150 Left Hip 150 Urine 300 1100 Other: Voiding Method External Catheter External Catheter - Exam The patient is up in bed and alert and able to answer questions. On inspection of the patient's left hip there is a clean dressing with no saturation. The drain site is intact. His thigh and calf are soft. He is able to actively plantarflex and dorsiflex his ankle and his toes. - Labs CBC & Chem 7: 12/19/21 05:10 12/18/21 05:04 Labs: Abnormal Lab Results - Last 24 Hours (Table) 12/19/21 Range/Units 05:10 RBC 3.29 L (4.40-5.60) X 10*6/uL Hgb 11.0 L (13.0-17.0) g/dL Hct 32.0 L (39.6-50.0) % MCV 97.3 H (80.0-97.0) fL MCH 33.4 H (27.0-32.0) pg Plt Count 123 L (140-440) X 10*3/uL Lymphocytes # 0.76 L (0.90-5.00) X 10*3/uL Assessment and Plan Plan: Postoperative day #2 status post left correct anterior hip hemiarthroplasty for displaced femoral neck fracture. The patient's Hemovac drain was removed this morning. He is otherwise doing well and should continue postoperative care as dictated in yesterday's progress note. I would encourage continue mobilization out of bed. Discharge planning is in process.
[2021-12-20 09:17] LABS: HDL Cholesterol 38.7 mg/dL (40.00-60.00); Triglycerides 45.1 mg/dL (0.00-149.00)
[2021-12-20 09:29] LABS: Chol/HDL Ratio 2.36 Ratio; LDL Cholesterol,Direct Reflex 47.5 mg/dL (0.00-129.00)
[2021-12-20 13:21] LABS: Basophils % (A) 0 %; Eosinophils # (A) 0.4 k/uL (0-0.7); Eosinophils % (A) 7 %; HCT 30.9 % (39.0-53.0); HGB 10.5 gm/dL (13.0-17.5); Lymphocytes % (A) 14 %; MCH 34.7 pg (25.0-35.0); MCHC 33.9 g/dL (31.0-37.0); MCV 102.4 fL (80.0-100.0); Macrocytosis Slight; Mean Platelet Volume 9.9; Monocytes # (A) 0.5 k/uL (0-1.0); Monocytes % (A) 8 %; Neutrophils # (A) 4.7 k/uL (1.3-7.7); Neutrophils % (A) 70 %; Platelet Count 126 k/uL (150-450); RBC 3.02 m/uL (4.30-5.90); RDW 12.6 % (11.5-15.5); WBC 6.7 k/uL (3.8-10.6)
[2021-12-20] MEDS: SODIUM CHLORIDE 0.9% 1,000 ML IV SCH ×2 (13:49)
--- NOTE | 2021-12-20 15:33 | P.PN ---
Progress Note - Text Progress Note Date: 12/20/21 History of presenting complaint: This is a very pleasant [address] Smith. Chronic stable medical conditions include hyperlipidemia, GERD, mild Alzheimer's dementia, cardiomyopathy, hypertension, chronic low back pain, chronic kidney disease, coronary artery disease with history of bypass years ago. Patient now presents with left displaced femoral neck fracture. Underwent on December [address] Tom. December 19: Sitting up in bed. Pain control. at the bedside. Not too keen to eat as he does not like hospital food. No nausea vomiting. No chest pain. Did walk about 20 feet with a rolling walker with physical therapy. December 20: Comfortable in bed. Family present. Patient not very keen on hospital food. Did request the family to bring him some from home. Stable Review of systems: Was done for constitutional, cardiovascular, GI, pulmonary. relevant finding as above Active Medications Acetaminophen (Acetaminophen Tab 325 Mg Tab) 650 mg PO Q6HR PRN PRN Reason: Mild Pain or Fever > 100.5 Last Admin: 12/20/21 05:02 Dose: 650 mg Documented by: Ascorbic Acid (Ascorbic Acid 500 Mg Tab) 500 mg PO DAILY [facility] Last Admin: 12/20/21 07:36 Dose: 500 mg Documented by: Aspirin (Aspirin 81 Mg) 81 mg PO BID [facility] Last Admin: 12/20/21 07:36 Dose: 81 mg Documented by: Baclofen (Baclofen 10 Mg Tab) 10 mg PO TID PRN PRN Reason: Pain Last Admin: 12/20/21 13:52 Dose: 10 mg Documented by: Carvedilol (Carvedilol 6.25 Mg Tab) 6.25 mg PO BID-W/MEALS [facility] Last Admin: 12/20/21 07:35 Dose: 6.25 mg Documented by: Cholecalciferol (Cholecalciferol 25 Mcg (1000 Iu) Tablet) 25 mcg PO DAILY [facility] Last Admin: 12/20/21 07:36 Dose: 25 mcg Documented by: Ferrous Sulfate (Ferrous Sulfate 325 Mg Tab) 325 mg PO BID-W/MEALS [facility] Last Admin: 12/20/21 07:36 Dose: 325 mg Documented by: Heparin Sodium (Porcine) (Heparin Sodium,Porcine/Pf 5,000 Unit/0.5 Ml Syringe) 5,000 unit SQ Q8HR [facility] Last Admin: 12/20/21 07:35 Dose: 5,000 unit Documented by: Hydromorphone HCl (Hydromorphone 0.2 Mg/1 Ml Syringe) 0.2 mg IVP Q3HR PRN PRN Reason: Pain Scale 4 to 6 Hydromorphone HCl (Hydromorphone 0.5 Mg/0.5 Ml Syringe) 0.125 mg IVP Q3HR PRN PRN Reason: Pain Scale 1 to 3 Hydromorphone HCl (Hydromorphone 0.5 Mg/0.5 Ml Syringe) 0.5 mg IVP Q3HR PRN PRN Reason: Pain Scale 7 to 10 Last Admin: 12/19/21 06:31 Dose: 0.5 mg Documented by: Sodium Chloride (Saline 0.9%) 1,000 mls @ 75 mls/hr IV .[id number] [facility] Last Admin: 12/20/21 13:49 Dose: Not Given Documented by: Lactated Ringer's (Lactated Ringers) 1,000 mls @ 100 mls/hr IV .Q10H [facility] Last Admin: 12/20/21 14:44 Dose: Not Given Documented by: Lisinopril (Lisinopril 10 Mg Tab) 10 mg PO DAILY [facility] Last Admin: 12/20/21 07:36 Dose: 10 mg Documented by: Multivitamins (Multivitamins, Thera 1 Each Tab) 1 each PO DAILY [facility] Last Admin: 12/20/21 07:36 Dose: 1 each Documented by: Naloxone HCl (Naloxone 0.4 Mg/Ml 1 Ml Vial) 0.2 mg IV Q2M PRN PRN Reason: Opioid Reversal Ondansetron HCl (Ondansetron 4 Mg/2 Ml Vial) 4 mg IVP Q24HR PRN PRN Reason: Nausea And Vomiting Senna/Docusate Sodium (Sennosides-Docusate Sodium 1 Each Tab) 2 each PO HS [facility] Last Admin: 12/19/21 20:07 Dose: 2 each Documented by: Tramadol HCl (Tramadol 50 Mg Tab) 50 mg PO Q6HR PRN PRN Reason: Pain Last Admin: 12/20/21 13:52 Dose: 50 mg Documented by: Past medical history to include: Hyperlipidemia, GERD, Alzheimer's dementia mild, cardiomyopathy, hypertension, chronic low back pain, chronic kidney disease, thoracic aortic aneurysm, coronary artery disease with bypass Social history: 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 . Does smoke in the past. No significant alcohol history Family history: Reviewed, noncontributory to presentation Physical examination: VITAL SIGNS: 97.6, 74, 18, 112/64, 96% room air GENERAL: Propper in bed, awake, comfortable EYES: Pupils equal. Conjunctiva normal. HEENT: External appearance of nose and ears normal, oral cavity grossly normal. NECK: JVD not raised; masses not palpable. HEART: First and second heart sounds are normal; no edema. LUNGS: Respiratory rate normal; clear to auscultation. MUSCULAR skeletal: Evidence of OA. Dressing over the incision site ABDOMEN: Soft, nontender, liver spleen not palpable, no masses palpable. PSYCH: Patient is able to answer simple questions.. INVESTIGATIONS, reviewed in the clinical context: December 20: White count 6.7 hemoglobin 10.5 platelets 126 White count 7.2 hemoglobin 11 platelets 123 potassium 3.9 creatinine 1.0 Labs from 08/26/2021 Hemoglobin 15.4. Assessment and plan: -left displaced femoral neck fracture. Underwent on December [address] Dr. Tom. Aspirin 80 mg twice a day for DVT prophylaxis -Coronary artery disease prior history of coronary bypass Coreg 6.25 mg by mouth twice a day. 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 Request the family to bring food from home as patient does not like hospital food. Thank you Dr. Tom
--- NOTE | 2021-12-20 16:11 | PN ---
PROGRESS NOTE Known coronary artery disease status post bypass surgery admitted to hospital with left hip fracture and underwent surgery for the same. I have seen the patient with his at bedside. Denies any symptoms. EXAM: Comfortable at rest. Vital signs are stable. Chest exam reveals good air entry bilaterally. Heart exam reveals first and second heart sounds. No gallop. Examination of extremities did not reveal any edema. Peripheral pulses are felt. Patient is currently on aspirin, Coreg and lisinopril. ASSESSMENT: 1. Coronary artery disease status post coronary artery bypass grafting. 2. Status post left hip replacement surgery. PLAN: Continue patient on current medications. Tolerated the surgery well. Arrange follow up with Cardiology on discharge. We will see the patient on a p.r.n. basis. SARA / MARCIALN: [id number] /
[2021-12-20] MEDS: SENNOSIDES-DOCUSATE SODIUM 1 EACH TAB PO SCH (20:25)
[2021-12-21] MEDS: HEPARIN SODIUM,PORCINE/PF 5,000 UNIT/0.5 ML SYRINGE SQ SCH ×2 (00:10→08:43)
[2021-12-21] MEDS: SODIUM CHLORIDE 0.9% 1,000 ML IV SCH ×2 (00:12→09:07)
[2021-12-21 07:58] VITALS: BP 153/73; PULSE 84; RESP 17; TEMP 98.7
[2021-12-21] MEDS: ASCORBIC ACID 500 MG TAB PO SCH (08:42)
[2021-12-21] MEDS: lisinopriL 10 MG TAB PO SCH (08:43)
[2021-12-21] MEDS: MULTIVITAMINS, THERA 1 EACH TAB PO SCH (08:43)
[2021-12-21] MEDS: FERROUS SULFATE 325 MG TAB PO SCH (08:43)
[2021-12-21] MEDS: ASPIRIN 81 MG PO SCH (08:43)
[2021-12-21] MEDS: carvediloL 6.25 MG TAB PO SCH (08:43)
[2021-12-21] MEDS: CHOLECALCIFEROL 25 MCG (1000 IU) TABLET PO SCH (08:43)
[2021-12-21] MEDS: LACTATED RINGERS 1,000 ML IV SCH (09:06)
--- NOTE | 2021-12-21 11:21 | P.DS ---
Providers Date of admission: 12/17/21 19:24 Expected date of discharge: 12/21/21 Attending physician: Bradly Tom Consults: 12/17/21 19:25 Consult Physician Routine Consulting Provider: David Lacey Consult Reason/Comments: medical care and clearance Do you want consulting provider notified?: Already Contacted 12/18/21 02:54 Consult Physician Urgent Consulting Provider: Eliel Mccabe Consult Reason/Comments: preop clearance, hx of CHF, CAD Do you want consulting provider notified?: Yes Primary care physician: Bill Sarah [facility] Course: This is a 74-year-old male who is admitted to [facility] on 12/17/20 after a ground-level fall and sustaining injury to the left hip. X-rays in the emergency department revealed a left femoral neck fracture. He is admitted to our service for surgical intervention and care. Patient was taken to surgery for left hip hemiarthroplasty on 12/18/[address] Tom. The procedure was performed without complication or sequelae. The patient is doing fairly well postoperatively. Vital signs and labs are stable on postoperative day #3. Patient is seen and examined bedside this morning. His is bedside. The patient is currently eating breakfast. He has no complaints or concerns at this time. He states the pain in his left hip is well controlled. Per patient's , the patient was up standing at bedside yesterday. Vital signs stable. On examination, the patient is sitting in the bed in no apparent distress. He is alert and oriented 1. Answers questions appropriately. On inspection of the left hip, there is a clean, dry, intact Opsite surgical dressing in place. No bleeding or drainage through the dressing. There is mild swelling of the thigh, the thigh is soft and compressible. Motor and sensory function is intact of the left lower extremity, he has good strength and [id number] of the left ankle. Dorsalis pedis pulses easily palpable. Left lower extremity warm and well perfused with brisk capillary refill distally. The calf is soft and nontender to palpation, there is no sign of DVT. Patient is discharged to rehab today in good condition, pending medical clearance. Patient will follow-up with Dr. Tom in the office in 1 week. Please see med rec for accurate list of discharge medication. Plan - Discharge Summary New Discharge Prescriptions: New traMADol HCL [Ultram] 50 mg PO Q6HR PRN 7 Days #28 tab PRN Reason: Pain Aspirin 81 mg PO BID 30 Days #60 tab No Action Baclofen [Lioresal] 10 mg PO TID PRN PRN Reason: Pain Aspirin EC [Ecotrin Low Dose] 81 mg PO DAILY Multivitamins, Thera [Multivitamin (formulary)] 1 tab PO DAILY Ascorbic Acid [Vitamin C] 500 mg PO DAILY Quinapril HCl [Accupril] 5 mg PO DAILY carvediloL [Coreg] 6.25 mg PO BID Cholecalciferol [Vitamin D3 (25 Mcg = 1000 Iu)] 25 mcg PO DAILY Ibuprofen [Advil] 200 mg PO BID PRN PRN Reason: Pain Discharge Medication List Ascorbic Acid [Vitamin C] 500 mg PO DAILY 05/07/20 [History] Aspirin EC [Ecotrin Low Dose] 81 mg PO DAILY 05/07/20 [History] Baclofen [Lioresal] 10 mg PO TID PRN 05/07/20 [History] Multivitamins, Thera [Multivitamin (formulary)] 1 tab PO DAILY 05/07/20 [History] Cholecalciferol [Vitamin D3 (25 Mcg = 1000 Iu)] 25 mcg PO DAILY 12/17/21 [History] Ibuprofen [Advil] 200 mg PO BID PRN 12/17/21 [History] Quinapril HCl [Accupril] 5 mg PO DAILY 12/17/21 [History] carvediloL [Coreg] 6.25 mg PO BID 12/17/21 [History] Aspirin 81 mg PO BID 30 Days #60 tab 12/21/21 [Rx] traMADol HCL [Ultram] 50 mg PO Q6HR PRN 7 Days #28 tab 12/21/21 [Rx] Follow up Appointment(s)/Referral(s): Bill Smith MD [Primary Care Provider] - 1-2 days Bradly Tom MD [Medical Doctor] - 1 Week Activity/Diet/Wound Care/Special Instructions: Weight bear as tolerated on operative leg with a walker, with assistance. Keep operative dressing intact until follow-up appointment in the office. Take pain medications as needed. Take aspirin 81mg twice a day x 4 weeks for blood clot prevention. Follow-up in the office with Dr. Tom in one week. Call the office with any questions or concerns, Discharge Disposition: TRANSFER TO SNF/ECF
--- NOTE | 2021-12-21 15:03 | CDI ---
Documentation Clarification Form Date: 12/21/2021 02:52:50 PM From: Krystyna Ackerman CCS, CCDS Admit Date: 12/17/2021 07:24:00 PM Patient Name: Eduard Gómez Visit Number: [id number] Discharge Date: ATTENTION: The Clinical Documentation Specialists (CDI) and [facility] Coding Staff appreciate your assistance in clarifying documentation. Please respond to the clarification below the line at the bottom and electronically sign. The CDI & [facility] Coding staff will review the response and follow-up if needed. Please note: Queries are made part of the Legal Health Record. If you have any questions, please contact the author of this message via ITS. Dr. David Lacey: Chronic Kidney Disease is documented in the 12/17 ED Note, the 12/18 Medical Management Consult, the 12/18 History & Physical, the 12/18 Cardiology Consult and the 12/19 Medical Management Progress Note without further specificity. Additional clarification regarding the stage of CKD is requested. History/Risk Factors per the 12/18 H/P: CAD, Dementia, GERD, Hyperlipidemia, Hypertension, Chronic Back Pain, CKD, Thoracic Aortic Aneurysm and Cardiomyopathy. Clinical Indicators: Presented to the ED on 12/17 via EMS with concern for a Left Hip Fracture, patient fell 2 days prior and had another fall today. Has some discomfort in the left hip. Admit with Subcapital Fracture of the Left Hip 12/18 Procedure: Left Hip Hemiarthroplasty Current BUN/CR/GFR 12/18: 22.0/1.0/70.4 Historical GFR: 08/26/2021: 72.7, 03/23/2021: 51.9; 08/20/2020: 64.0. Treatment 12/17: Fall precautions, po Tylenol 650 mg q6H/prn, IV Morphine 4 mg q4H/prn 12/18: Heparin 5,000 units sq q8H, IV Vefazolin x1, IV Dilaudid 0.2 mg q3H to 0.5 mg q3H/prn (on pain scale), I Lactated Ringers 1,000 mls @ 100 mls/hr q10H Please clarify the stage of the CKD, if known: [ ] CKD Stage 3 (GFR 30-59) [ ] CKD Stage 3a (GFR 45-59) [ ] Other, please specify [ ] Unable to determine (Template Last revised: December 2020) Unable to determine MTDD
--- NOTE | 2021-12-21 19:43 | P.PN ---
Progress Note - Text Progress Note Date: 12/21/21 History of presenting complaint: This is a very pleasant [address] Smith. Chronic stable medical conditions include hyperlipidemia, GERD, mild Alzheimer's dementia, cardiomyopathy, hypertension, chronic low back pain, chronic kidney disease, coronary artery disease with history of bypass years ago. Patient now presents with left displaced femoral neck fracture. Underwent on December [address] Dr[address] Tom. December 19: Sitting up in bed. Pain control. at the bedside. Not too keen to eat as he does not like hospital food. No nausea vomiting. No chest pain. Did walk about 20 feet with a rolling walker with physical therapy. December 20: Comfortable in bed. Family present. Patient not very keen on hospital food. Did request the family to bring him some from home. Stable December 21: Comfort comfortable. Did work with therapy. Pain control. No new issues. Discussed with the at the bedside. Going to rehab today. Review of systems: Was done for constitutional, cardiovascular, GI, pulmonary. 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 . Does smoke in the past. No significant alcohol history Family history: Reviewed, noncontributory to presentation Physical examination: VITAL SIGNS: 98.7, 84, 17, 153/73, 95% room air GENERAL: In a recliner, awake, comfortable EYES: Pupils equal. Conjunctiva normal. HEENT: External appearance of nose and ears normal, oral cavity grossly normal. NECK: JVD not raised; masses not palpable. HEART: First and second heart sounds are normal; no edema. LUNGS: Respiratory rate normal; clear to auscultation. MUSCULAR skeletal: Evidence of OA. Dressing over the incision site ABDOMEN: Soft, nontender, liver spleen not palpable, no masses palpable. PSYCH: Patient is able to answer simple questions.. INVESTIGATIONS, reviewed in the clinical context: December 20: White count 6.7 hemoglobin 10.5 platelets 126 White count 7.2 hemoglobin 11 platelets 123 potassium 3.9 creatinine 1.0 Labs from 08/26/2021 Hemoglobin 15.4. Assessment and plan: -left displaced femoral neck fracture. Underwent on December [address] Dr[address] Tom. Aspirin 80 mg twice a day for DVT prophylaxis -Coronary artery disease prior history of coronary bypass Coreg 6.25 mg by mouth twice a day. 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 Continue current medications. Follow with PCP. Thank you Dr. Tom
== END 2021-12-21 15:26 | DRG 522 ==
LOC: EC 18:05 → 4SSUR 19:24
PROVIDERS: ADMIT Orthopaedic Surgery; ATTEND Orthopaedic Surgery
PROC: 0SRS0JZ Replacement of Left Hip Joint, Femoral Surface with Synthetic Substitute, Open Approach (ICD-10-PCS; principal; 2021-12-18 07:30)
DX: S72.012A Unspecified intracapsular fracture of left femur, initial encounter for closed fracture (principal); D62 Acute posthemorrhagic anemia; D69.3 Immune thrombocytopenic purpura; I42.9 Cardiomyopathy, unspecified; I13.0 Hypertensive heart and chronic kidney disease with heart failure and stage 1 through stage 4 chronic kidney disease, or unspecified chronic kidney disease; Y92.009 Unspecified place in unspecified non-institutional (private) residence as the place of occurrence of the external cause; E78.5 Hyperlipidemia, unspecified; F02.80 Dementia in other diseases classified elsewhere, unspecified severity, without behavioral disturbance, psychotic disturbance, mood disturbance, and anxiety; G30.1 Alzheimer's disease with late onset; Z20.822 Contact with and (suspected) exposure to COVID-19; I25.10 Atherosclerotic heart disease of native coronary artery without angina pectoris; I50.9 Heart failure, unspecified; M19.91 Primary osteoarthritis, unspecified site; N18.9 Chronic kidney disease, unspecified; W18.30XA Fall on same level, unspecified, initial encounter; Z79.82 Long term (current) use of aspirin; Z79.899 Other long term (current) drug therapy; Z87.891 Personal history of nicotine dependence; Z95.1 Presence of aortocoronary bypass graft; Z95.5 Presence of coronary angioplasty implant and graft; Z88.1 Allergy status to other antibiotic agents; Z88.5 Allergy status to narcotic agent; Z88.2 Allergy status to sulfonamides; Z88.8 Allergy status to other drugs, medicaments and biological substances; K21.9 Gastro-esophageal reflux disease without esophagitis
CPT/HCPCS: 73501; 80048; 80061; 83721; 84450; 84460; 85025; 85027; 86850; 86900; 86901; 87635; 88305; 88311; 93005; 93306; 99285